=== PATIENT | male | born 1940 | race Caucasian/White ===

== ENCOUNTER 2022-05-20 18:28 | Inpatient (IN) ==
[2022-05-20] MEDS ORDERED: OPTIRAY 320 100ml IV ONE (18:56)
[2022-05-20] MEDS ORDERED: SODIUM CHLORIDE 0.9% 500 ML IV SCH (19:00)
--- NOTE | 2022-05-20 19:02 | Emergency Department Note ---
Impression & Plan Near syncope, Weakness, TAMARA (acute kidney injury), Pleural effusion ED Provider Note NAME: SHERIN MCFARLAND AGE: 81 SEX: M : 1940 ARRIVES VIA: Ambulance INFORMANT: Patient, ED PROVIDER(S): Javier Cardoso DO CHIEF COMPLAINT: Near syncope HPI: The patient is an 81-year-old male who presented to the emergency department for an evaluation of dizziness. The patient states he started having symptoms a few weeks ago. He started noticing that every time he went to stand up he would feel as though he was going to pass out and he would become very dizzy. He denies having any black or bloody bowel moods. He denies having any nausea or vomiting. He denies having any abdominal pain. He states over the course of the 2 weeks he has had episodes where he did fall 1 time where he struck his head. He had an episode prior to arrival where he went to stand up and became very dizzy and lightheaded. His significant other called 911 so we can come to the emergency department. The patient at this time states he feels somewhat improved. He has not been seen by his family doctor recently. He states that he does take blood thinners and has been compliant with all of his outpatient medications. ROS: See above HPI for pertinent positives & negatives. A total of 10 systems reviewed and were otherwise negative. PAST MEDICAL HISTORY: See Below PAST SURGICAL HISTORY: See Below FAMILY HISTORY: See Below SOCIAL HISTORY: See Below HOME MEDICATIONS: See Below ALLERGIES: See Below VITALS: See Below PHYSICAL EXAMINATION: GENERAL: The patient is awake and alert. He is nonanxious appearing. He appears to be comfortable. EYES: The conjunctivae are pale. The pupils are round and reactive. EARS, NOSE, MOUTH AND THROAT: The nose is without any evidence of any deformity. NECK: The neck is nontender and supple. RESPIRATORY: Normal respiratory effort is noted there is no evidence of wheezing rhonchi or rales CARDIOVASCULAR: Regular rate and rhythm noted there no murmurs rubs or gallops normal S1 normal S2. GASTROINTESTINAL: The abdomen is soft. Abdomen is nontender. Rectal exam revealed brown stool which was heme-negative. MUSCULOSKELETAL/EXTREMITIES: There is no evidence of gross deformity full range of motion is noted in the hips and shoulders. SKIN: The skin is warm and dry. Trace pedal edema was noted bilaterally. There is no calf tenderness elicited. NEUROLOGIC: Patient is awake alert and oriented x3. Strength was symmetric. There was no facial droop. Speech was clear. MEDICAL DECISION MAKING: The patient is an 81-year-old male who presented to the emergency department for evaluation of near syncope. According to the patient as well as his family members he has had 2 weeks of episodes where he goes to stand and feels very weak and feels as though he may pass out. He does have some dizziness but does not appear to have vertigo or any focal neurologic deficits. The patient was pale but his hemoglobin is stable compared to previous. The patient had a slight elevation in his creatinine. He was treated with IV fluids in the emergency department. He was able to ambulate but does have some dyspnea on exertion. I discussed the patient's laboratory and radiographic studies with him. Given the degree of symptoms I did discuss his case with the on-call [facility] hospitalist. They have agreed to evaluate the patient in the emergency department for further management and disposition. Triage Nursing notes reviewed. Prior medical records reviewed Vital Signs: reviewed and remarkable for no significant abnormalities Differential diagnosis: Benign positional vertigo, dehydration, hypovolemia, anemia, tumor, infection, hypoglycemia, electrolyte abnormalities, cardiac sources, intracerebral event, toxicologic, neurologic, as well as other pathologies. ER treatment provided: See below Diagnostics interpreted by me: ECG: EKG was obtained in the emergency department. My interpretation is normal sinus rhythm at 62 bpm. There is no ectopy. There was no acute ST segment abnormalities noted. This was compared to a tracing from September 07, 2018. No changes were noted. Cardiac Monitoring: An order was placed for continuous cardiac monitoring. The monitor shows a rate of 67 bpm with sinus rhythm. Laboratory studies: As stated above and show below. Imaging studies: See below Consultation(s): I discussed this case with Dr. Sidhu. He will evaluate the patient in the emergency department for further management and disposition. Past Med/Surg History Medical History Esophageal cancer Surgical History History of esophageal surgery Social History Smoking Status: Former smoker Preferred Language: Thai marital status: Current Living Situation: Spouse Feels Safe at Home: Yes Allergies Allergies Allergy/AdvReac Type Severity Reaction Status Date / Time dextrose Allergy Intermediate Rash Verified 05/20/22 19:42 ibuprofen Allergy Intermediate Rash Verified 05/20/22 19:42 levofloxacin Allergy Intermediate Rash Verified 05/20/22 19:42 prednisone Allergy Intermediate Rash Verified 05/20/22 19:42 rofecoxib Allergy Intermediate Rash Verified 05/20/22 19:42 Home Meds Home Medications Medication Instructions Recorded Confirmed amitriptyline 50 mg tablet 50 mg PO HS 09/07/18 05/20/22 buspirone 5 mg tablet See Rx Instructions .ROUTE .COMPLEX 09/07/18 05/20/22 ezetimibe 10 mg tablet 5 mg PO DAILY 09/07/18 05/20/22 fluvastatin 80 mg tablet,extended 80 mg PO DAILY 09/07/18 05/20/22 release 24 hr lorazepam 0.5 mg tablet 0.5 mg PO TID PRN 09/07/18 05/20/22 pantoprazole 40 mg tablet,delayed 40 mg PO DAILY 09/07/18 05/20/22 release apixaban 5 mg tablet (Eliquis) 5 mg PO BID 05/20/22 05/20/22 diclofenac sodium 1 % topical gel 4 g TOPICAL DAILY PRN 05/20/22 05/20/22 gabapentin 300 mg capsule 600 mg PO TID 05/20/22 05/20/22 propranolol 20 mg tablet 20 mg PO BID 05/20/22 05/20/22 Results & Data (ED) Vital Signs Vital Signs - 24 hr 05/20/22 18:21 05/20/22 19:38 05/20/22 21:13 Temperature 36.5 C Temperature Source Temporal Artery Scan Pulse Rate - Lying 68 Pulse Rate - Sitting 76 Pulse Rate - Standing 71 Pulse Rate 63 Pulse Rate [Finger] 67 Pulse Rhythm Regular Pulse Strength Normal Respiratory Rate 18 18 Respiratory Effort / Characteristics Non-Labored Respiratory Depth Normal Blood Pressure - Lying 133/72 Blood Pressure - Sitting 122/71 Blood Pressure- Standing 119/63 Blood Pressure 116/66 Blood Pressure [Right Arm] 121/72 Blood Pressure Mean 82 Blood Pressure Mean [Right Arm] 88 Pulse Oximetry 97 Oxygen Delivery Method Room Air Sepsis Recent Fever Within 48 Hours No Sepsis New/Unexplained Change in Mental Status N/A Sepsis Action Taken by Nursing No Action Required 05/20/22 21:15 Temperature Temperature Source Pulse Rate - Lying Pulse Rate - Sitting Pulse Rate - Standing Pulse Rate Pulse Rate [Finger] Pulse Rhythm Pulse Strength Respiratory Rate Respiratory Effort / Characteristics Respiratory Depth Blood Pressure - Lying Blood Pressure - Sitting Blood Pressure- Standing Blood Pressure Blood Pressure [Right Arm] Blood Pressure Mean Blood Pressure Mean [Right Arm] Pulse Oximetry 97 Oxygen Delivery Method Room Air Sepsis Recent Fever Within 48 Hours Sepsis New/Unexplained Change in Mental Status Sepsis Action Taken by Snf Medications Current Medication List: was personally reviewed by me Laboratory Data Attestation: I reviewed the patient's lab results. Result diagrams: 05/20/22 18:33 05/20/22 20:05 Lab Results 05/20/22 05/20/22 05/20/22 Range/Units 18:33 18:33 18:33 WBC 9.48 (4.8-10.8) K/uL RBC 4.36 L (4.7-6.1) M/uL Hgb 12.6 L (14.0-18.0) g/dL Hct 38.9 L (42-52) % MCV 89.2 (80-100) fL MCH 28.9 (25-34) pg MCHC 32.4 (32-36) g/dL RDW Std Deviation 55.0 H (36.4-46.3) fL RDW Coeff of Gonsalo 16.7 H (11.5-14.5) % Plt Count 249 (130-400) K/uL MPV 10.9 H (7.4-10.4) fL Immature Gran % (Auto) 0.1 % Neut % (Auto) 71.1 % Lymph % (Auto) 8.2 % [place] % (Auto) 19.2 % Eos % (Auto) 1.2 % Baso % (Auto) 0.2 % Neut # (Auto) 6.74 H (1.4-6.5) K/uL Lymph # (Auto) 0.78 L (1.2-3.4) K/uL [place] # (Auto) 1.82 H (0.11-0.59) K/uL Eos # (Auto) 0.11 (0-0.5) K/uL Baso # (Auto) 0.02 (0-0.2) K/uL Immature Gran # (Auto) 0.01 (0.00-0.02) K/uL PT 11.7 (9.0-12.0) Seconds INR 1.1 (0.9-1.1) APTT 31.0 (21.0-31.0) Seconds PTT Ratio 1.1 Sodium (136-145) mmol/L Potassium (3.5-5.1) mmol/L Chloride (98-107) mmol/L Carbon Dioxide (21-32) mmol/L Anion Gap (3-11) BUN (6-23) mg/dl Creatinine (0.6-1.4) mg/dl Est Cr Clr Drug Dosing ml/min Est GFR ( Amer) ml/min Est GFR (Non-Af Amer) ml/min BUN/Creatinine Ratio (10-20) Glucose (70-99(Fasting)) mg/dl Calcium (8.5-10.1) mg/dl Magnesium (1.7-2.4) mg/dl Total Bilirubin (0.2-1.0) mg/dl AST (13-39) U/L ALT (7-52) U/L Alkaline Phosphatase (34-104) U/L Troponin I High Sens (0-20) pg/ml Total Protein (6.0-8.3) gm/dl Albumin (3.4-5.0) gm/dl Globulin (2.5-4.0) gm/dl Albumin/Globulin Ratio (0.9-2) TSH 0.998 (0.300-4.500) uIu/ml 05/20/22 Range/Units 20:05 WBC (4.8-10.8) K/uL RBC (4.7-6.1) M/uL Hgb (14.0-18.0) g/dL Hct (42-52) % MCV (80-100) fL MCH (25-34) pg MCHC (32-36) g/dL RDW Std Deviation (36.4-46.3) fL RDW Coeff of Gonsalo (11.5-14.5) % Plt Count (130-400) K/uL MPV (7.4-10.4) fL Immature Gran % (Auto) % Neut % (Auto) % Lymph % (Auto) % [place] % (Auto) % Eos % (Auto) % Baso % (Auto) % Neut # (Auto) (1.4-6.5) K/uL Lymph # (Auto) (1.2-3.4) K/uL [place] # (Auto) (0.11-0.59) K/uL Eos # (Auto) (0-0.5) K/uL Baso # (Auto) (0-0.2) K/uL Immature Gran # (Auto) (0.00-0.02) K/uL PT (9.0-12.0) Seconds INR (0.9-1.1) APTT (21.0-31.0) Seconds PTT Ratio Sodium 138 (136-145) mmol/L Potassium 3.7 (3.5-5.1) mmol/L Chloride 103 (98-107) mmol/L Carbon Dioxide 29 (21-32) mmol/L Anion Gap 6 (3-11) BUN 14 (6-23) mg/dl Creatinine 1.53 H (0.6-1.4) mg/dl Est Cr Clr Drug Dosing 39.6 ml/min Est GFR ( Amer) 48.4 ml/min Est GFR (Non-Af Amer) 41.7 ml/min BUN/Creatinine Ratio 9.2 L (10-20) Glucose 94 (70-99(Fasting)) mg/dl Calcium 8.1 L (8.5-10.1) mg/dl Magnesium 1.8 (1.7-2.4) mg/dl Total Bilirubin 0.6 (0.2-1.0) mg/dl AST 11 L (13-39) U/L ALT 5 L (7-52) U/L Alkaline Phosphatase 77 (34-104) U/L Troponin I High Sens 6.5 (0-20) pg/ml Total Protein 6.4 (6.0-8.3) gm/dl Albumin 3.1 L (3.4-5.0) gm/dl Globulin 3.3 (2.5-4.0) gm/dl Albumin/Globulin Ratio 0.9 (0.9-2) TSH (0.300-4.500) uIu/ml Administered Medications Discontinued Medications Sodium Chloride (Nss) 500 mls @ 999 mls/hr IV .Q31M LORENZO Stop: 05/20/22 19:30 Last Infusion: 05/20/22 19:27 Dose: 0 mls/hr Documented by: [id number] Admin: 05/20/22 18:55 Dose: 999 mls/hr Documented by: [id number] Ioversol (Optiray 320 100ml) 92 ml IV ONCE ONE Stop: 05/20/22 18:57 Last Admin: 05/20/22 18:56 Dose: 92 ml Documented by: [id number] Imaging Data Radiologist's Impression: Cervical Spine CT 05/20/22 18:48 CT cervical spine wo con CLINICAL HISTORY: 81 years-old Male with fall. Acute head and neck injury status post fall COMPARISON: CT head of same day TECHNIQUE: Multiple axial CT images of the cervical spine were obtained without contrast. A dose lowering technique was utilized adhering to the principles of ALARA. FINDINGS: Calcified plaque of the carotid bulbs. Heterogeneity of the thyroid. Pleural parenchymal scarring of the lung apices. Mild nonspecific wall thickening of the upper esophagus. No prevertebral edema. Multilevel degenerative changes. Multilevel neural foraminal narrowing, suboptimally evaluated by CT. No acute fracture or subluxation. IMPRESSION: No acute fracture or subluxation. ACT 112: Negative or not required by law. The above report was generated using voice recognition software. It may contain grammatical, syntax or spelling errors. Electronically signed by: Javon Ha M.D. 05/20/2022 7:50 PM Chest X-Ray 05/20/22 18:48 XR chest 1V portable HISTORY: 81 years-old Male weakness acute weakness COMPARISON: CTA chest 09/07/2018 TECHNIQUE: Portable AP view of the chest FINDINGS: The cardiomediastinal and hilar silhouettes are unchanged. Right paramediastinal opacity is unchanged corresponding with the patient's tortuous esophagus. No pneumothorax or overt pulmonary edema. Trace right and small left pleural effusions with minimal left basilar opacities. Bones of the chest appear grossly intact. IMPRESSION: Small left and trace right pleural effusions. ACT 112: Negative or not required by law. The above report was generated using voice recognition software. It may contain grammatical, syntax or spelling errors. Electronically signed by: Javon Ha M.D. 05/20/2022 7:[address] 05/20/22 18:48 CT head/brain wo con CLINICAL HISTORY: 81 years-old Male with fall. Acute head and neck trauma status post fall TECHNIQUE: Multiple axial CT images of the head were obtained without contrast. A dose lowering technique was utilized adhering to the principles of ALARA. CT DOSE: 1069.08 mGy.cm COMPARISON: CT cervical spine of same day FINDINGS: No acute intracranial hemorrhage, midline shift, intracranial mass, hydrocephalus, territorial ischemia or abnormal extra-axial collection. Age- related involutional changes with ex vacuo ventriculomegaly. White matter hypodensities suggest chronic microvascular ischemic disease. Cerebral vascular calcifications. The calvarium is intact. Prior bilateral lens replacement. The paranasal sinuses, mastoid air cells, and middle ear cavities are clear. IMPRESSION: No acute intracranial abnormality or calvarial fracture. ACT 112: Negative or not required by law. The above report was generated using voice recognition software. It may contain grammatical, syntax or spelling errors. Electronically signed by: Javon Ha M.D. 05/20/2022 7:43 PM Discharge Plan Visit Data Chief Complaint: Dizziness ED Provider: Javier Cardoso Discharge Problem: Near syncope, Weakness, TAMARA (acute kidney injury), Pleural effusion Patient Disposition: Being Evaluated by Hospitalist Forms Stand Alone Forms: My [facility] [employer] Prescriptions Prescriptions: No Action buspirone 5 mg tablet See Rx Instructions .ROUTE .COMPLEX RF: 0 amitriptyline 50 mg tablet 50 mg PO HS RF: 0 lorazepam 0.5 mg tablet 0.5 mg PO TID PRN (Reason: Anxiety) RF: 0 pantoprazole 40 mg tablet,delayed release (DR/EC) 40 mg PO DAILY RF: 0 fluvastatin 80 mg tablet extended release 24 hr 80 mg PO DAILY RF: 0 ezetimibe 10 mg tablet 5 mg PO DAILY RF: 0 gabapentin 300 mg capsule 600 mg PO TID RF: 0 propranolol 20 mg tablet 20 mg PO BID RF: 0 diclofenac sodium [Voltaren] 1 % Gel 4 g TOPICAL DAILY PRN (Reason: Pain) RF: 0 Eliquis 5 mg tablet 5 mg PO BID RF: 0 Referrals Referrals: Priti Sabillon MD [Outside Practitioners] -
[2022-05-20 19:13] LABS: Basophils # (auto) 0.02 K/uL (0-0.2); Basophils % (auto) 0.2 %; Eosinophils # (auto) 0.11 K/uL (0-0.5); Eosinophils % (auto) 1.2 %; Hematocrit (blood only) 38.9 % (42-52); Hemoglobin 12.6 g/dL (14.0-18.0); Immature Granulocytes # (auto) 0.01 K/uL (0.00-0.02); Immature Granulocytes % (auto) 0.1 %; Lymphocytes # (auto) 0.78 K/uL (1.2-3.4); Lymphocytes % (auto) 8.2 %; Mean Corpuscular Hemoglobin 28.9 pg (25-34); Mean Corpuscular Hgb Conc 32.4 g/dL (32-36); Mean Corpuscular Volume 89.2 fL (80-100); Mean Platelet Volume 10.9 fL (7.4-10.4); Monocytes # (auto) 1.82 K/uL (0.11-0.59); Monocytes % (auto) 19.2 %; Neutrophils # (auto) 6.74 K/uL (1.4-6.5); Neutrophils % (auto) 71.1 %; Platelet Count 249 K/uL (130-400); RDW Coefficient of Variation 16.7 % (11.5-14.5); Red Blood Count 4.36 M/uL (4.7-6.1); White Blood Count 9.48 K/uL (4.8-10.8)
--- NOTE | 2022-05-20 19:20 | XRay Report ---
XR chest 1V portable HISTORY: 81 years-old Male weakness acute weakness COMPARISON: CTA chest 09/07/2018 TECHNIQUE: Portable AP view of the chest FINDINGS: The cardiomediastinal and hilar silhouettes are unchanged. Right paramediastinal opacity is unchanged corresponding with the patient's tortuous esophagus. No pneumothorax or overt pulmonary edema. Trace right and small left pleural effusions with minimal left basilar opacities. Bones of the chest appea r grossly intact. IMPRESSION: Small left and trace right pleural effusions. ACT 112: Negative or not required by law. The above report was generated using voice recognition software. It may contain grammatical, syntax o r spelling errors. Electronically signed by: Javon Ha M.D. 05/20/2022 7:18 PM
[2022-05-20 19:34] LABS: INR 1.1 (0.9-1.1); Partial Thromboplastin Ratio 1.1; Prothrombin Time 11.7 Seconds (9.0-12.0)
--- NOTE | 2022-05-20 19:45 | CT Scan Report ---
CT head/brain wo con CLINICAL HISTORY: 81 years-old Male with fall. Acute head and neck trauma status post fall TECHNIQUE: Multiple axial CT images of the head were obtained without contrast. A dose lowering tech nique was utilized adhering to the principles of ALARA. CT DOSE: 1069.08 mGy.cm COMPARISON: CT cervical spine of same day FINDINGS: No acute intracranial hemorrhage, midline shift, intracranial mass, hydrocephalus, territorial ischem ia or abnormal extra-axial collection. Age-related involutional changes with ex vacuo ventriculomegal y. White matter hypodensities suggest chronic microvascular ischemic disease. Cerebral vascular calci fications. The calvarium is intact. Prior bilateral lens replacement. The paranasal sinuses, mastoid air cells, and middle ear cavities are clear. IMPRESSION: No acute intracranial abnormality or calvarial fracture. ACT 112: Negative or not required by law. The above report was generated using voice recognition software. It may contain grammatical, syntax o r spelling errors. Electronically signed by: Javon Ha M.D. 05/20/2022 7:43 PM
--- NOTE | 2022-05-20 19:53 | CT Scan Report ---
CT cervical spine wo con CLINICAL HISTORY: 81 years-old Male with fall. Acute head and neck injury status post fall COMPARISON: CT head of same day TECHNIQUE: Multiple axial CT images of the cervical spine were obtained without contrast. A dose low ering technique was utilized adhering to the principles of ALARA. FINDINGS: Calcified plaque of the carotid bulbs. Heterogeneity of the thyroid. Pleural parenchymal scarring of the lung apices. Mild nonspecific wall thickening of the upper esophagus. No prevertebral edema. Multilevel degenerative changes. Multilevel neural foraminal narrowing, suboptimally evaluated by CT. No acute fracture or subluxation. IMPRESSION: No acute fracture or subluxation. ACT 112: Negative or not required by law. The above report was generated using voice recognition software. It may contain grammatical, syntax o r spelling errors. Electronically signed by: Javon Ha M.D. 05/20/2022 7:50 PM
[2022-05-20 20:33] LABS: Albumin Globulin Ratio 0.9 (0.9-2); Albumin Level 3.1 gm/dl (3.4-5.0); BUN Creatinine Ratio 9.2 (10-20); Bilirubin,Total 0.6 mg/dl (0.2-1.0); Calcium 8.1 mg/dl (8.5-10.1); Creatinine Clr Calc Pharmacy 39.6 ml/min; Est GFR (African American) 48.4 ml/min; Est GFR (Non-African American) 41.7 ml/min; Globulin 3.3 gm/dl (2.5-4.0); Magnesium 1.8 mg/dl (1.7-2.4); Potassium 3.7 mmol/L (3.5-5.1); Total Protein 6.4 gm/dl (6.0-8.3)
[2022-05-20 20:39] LABS: Troponin I High Sensitivity 6.5 pg/ml (0-20)
--- NOTE | 2022-05-20 23:13 | History & Physical Report ---
Date of Service May 20, 2022 Assessment & Plan (1) Syncope: Plan: Likely secondary to orthostasis History of orthostatic hypotension as per records Patient possibly taking both propranolol and metoprolol cardiac medications as per account. (Possible functional disability) PAF on Eliquis, patient NSR hx esophageal carcinoma status post surgery CRI, creatinine at baseline chronic anemia, hemoglobin at baseline past tobacco/alcohol abuse OBS Medical telemetry Continue metoprolol, DC propranolol TTE RE syncope Cardiology consult Re: Orthostasis, syncope May need midodrine if with persistent hypotension PT OT eval DVT prophylaxis. Eliquis Full code Patient family requesting updates from providers. Ms. Magaly Epps (), contact #[phone] Mr. Myles Escobedo ([email or web address]), contact #[phone] Text document was generated using [employer] voice recognition software. It may contain grammatical or spelling errors. Kindly contact undersigned for clarification of any documentation item in question. History of Present Illness Chief Complaint: Lightheadedness, recurrent falls, syncope as per family Primary Care Provider: Dianna Maria, History obtained from patient, family, and records. Medical history significant for PAF on Eliquis, esophageal carcinoma status post surgery, orthostatic hypotension as per records, CRI (baseline creatinine 1.5 ), chronic anemia (baseline hemoglobin of 12 ), past tobacco/alcohol abuse. 1 month history of dizziness described as lightheadedness noted on standing up. Almost daily symptoms as per family. Syncopal events as per family which patient not sure about. No witnessed seizures. No tongue biting or incontinence episodes. Patient denies headache, chest pain, shortness of breath. Metoprolol discontinued by [facility] polypharmacy consult on last visit August 2021. Patient thinks he is taking both propranolol and metoprolol medications at home. Head trauma following syncopal episode at home today leading to fall. Initial SBP 90s upon EMS arrival at home. Medical History as above Surgical History : Cystoscopy, right shoulder surgery, knee replacement, laminectomy, double hernia repair, vascular device placement, diagnostic laparoscopy, total esophagectomy, J-tube placement Family History : DM Personal/Social history : Past tobacco/alcohol abuse as per records, retired from construction work, lives with Allergies Allergy/AdvReac Type Severity Reaction Status Date / Time dextrose Allergy Intermediate Rash Verified 05/20/22 19:42 ibuprofen Allergy Intermediate Rash Verified 05/20/22 19:42 levofloxacin Allergy Intermediate Rash Verified 05/20/22 19:42 prednisone Allergy Intermediate Rash Verified 05/20/22 19:42 rofecoxib Allergy Intermediate Rash Verified 05/20/22 19:42 Home Medications Medication Instructions Recorded Confirmed Type amitriptyline 50 mg tablet 50 mg PO HS 09/07/18 05/20/22 History buspirone 5 mg tablet See Rx Instructions .ROUTE .COMPLEX 09/07/18 05/20/22 History ezetimibe 10 mg tablet 5 mg PO DAILY 09/07/18 05/20/22 History fluvastatin 80 mg tablet,extended 80 mg PO DAILY 09/07/18 05/20/22 History release 24 hr lorazepam 0.5 mg tablet 0.5 mg PO TID PRN 09/07/18 05/20/22 History pantoprazole 40 mg tablet,delayed 40 mg PO DAILY 09/07/18 05/20/22 History release apixaban 5 mg tablet (Eliquis) 5 mg PO BID 05/20/22 05/20/22 History diclofenac sodium 1 % topical gel 4 g TOPICAL DAILY PRN 05/20/22 05/20/22 History gabapentin 300 mg capsule 600 mg PO TID 05/20/22 05/20/22 History propranolol 20 mg tablet 20 mg PO BID 05/20/22 05/20/22 History Past Med/Surg History Medical History Esophageal cancer Surgical History History of esophageal surgery Social History Smoking Status: Unknown if ever smoked Hx Alcohol Use: No Hx Substance Use: No Preferred Language: Estonian Communication Ability: Effective Mobile Home Installer Required: No Beliefs That Will Affect Care: None marital status: Current Living Situation: Alone Other Information That Helps Us Care for You: No Feels Safe at Home: Yes Safety Concerns: Feels Safe At This Time Assistive Devices: Denture - Upper and Glasses Review of Systems Review of Systems: As per HPI, all other systems reviewed and negative Physical Exam Physical Exam: GENERAL: Comfortable, pleasant, slightly anxious, slightly hard of hearing, no respiratory distress SKIN: Normal color, warm HEENT: [place] palpebral conjunctivae, no ptosis, dry buccal mucosa NECK : Supple, no tenderness CHEST : CTA, no tenderness HEART : RRR, no obvious murmurs ABDOMEN: no distention, nontender EXTREMITIES : No LE swelling/tenderness, no other conspicuous deformities noted NEUROLOGIC : Coherent, no facial asymmetry, slightly hard of hearing, gait and stance not assessed Results & Data Results & Data ([facility]) Vital Signs (Past 12 Hours) Vital Signs Temp Pulse Pulse Resp BP BP Pulse Ox 05/20/22 21:15 97 05/20/22 21:13 67 18 121/72 05/20/22 18:21 36.5 C 63 18 116/66 97 Laboratory Results Laboratory Results WBC 9.48 K/uL (4.8-10.8) 05/20/22 18:33 RBC 4.36 M/uL (4.7-6.1) L 05/20/22 18:33 Hgb 12.6 g/dL (14.0-18.0) L 05/20/22 18:33 Hct 38.9 % (42-52) L 05/20/22 18:33 MCV 89.2 fL (80-100) 05/20/22 18:33 MCH 28.9 pg (25-34) 05/20/22 18:33 MCHC 32.4 g/dL (32-36) 05/20/22 18:33 RDW Std Deviation 55.0 fL (36.4-46.3) H 05/20/22 18:33 RDW Coeff of [place] 16.7 % (11.5-14.5) H 05/20/22 18:33 Plt Count 249 K/uL (130-400) 05/20/22 18:33 MPV 10.9 fL (7.4-10.4) H 05/20/22 18:33 Immature Gran % (Auto) 0.1 % 05/20/22 18:33 Neut % (Auto) 71.1 % 05/20/22 18:33 Lymph % (Auto) 8.2 % 05/20/22 18:33 [place] % (Auto) 19.2 % 05/20/22 18:33 Eos % (Auto) 1.2 % 05/20/22 18:33 Baso % (Auto) 0.2 % 05/20/22 18:33 Neut # (Auto) 6.74 K/uL (1.4-6.5) H 05/20/22 18: Lymph # (Auto) 0.78 K/uL (1.2-3.4) L 05/20/22 18:33 [place] # (Auto) 1.82 K/uL (0.11-0.59) H 05/20/22 18: Eos # (Auto) 0.11 K/uL (0-0.5) 05/20/22 18: Baso # (Auto) 0.02 K/uL (0-0.2) 05/20/22 18: Immature Gran # (Auto) 0.01 K/uL (0.00-0.02) 05/20/22 18: PT 11.7 Seconds (9.0-12.0) 05/20/22 18: INR 1.1 (0.9-1.1) 05/20/22: APTT 31.0 Seconds (21.0-31.0) 05/20/22: PTT Ratio 1.1 05/20/22 18:33 Sodium 138 mmol/L (136-145) 05/20/22 20:05 Potassium 3.7 mmol/L (3.5-5.1) 05/20/22 20:05 Chloride 103 mmol/L (98-107) 05/20/22 20:05 Carbon Dioxide 29 mmol/L (21-32) 05/20/22 20:05 Anion Gap 6 (3-11) 05/20/22 20:05 BUN 14 mg/dl (6-23) 05/20/22 20:05 Creatinine 1.53 mg/dl (0.6-1.4) H 05/20/22 20:05 Est Cr Clr Drug Dosing 39.6 ml/min 05/20/22 20:05 Est GFR ( Amer) 48.4 ml/min 05/20/22 20:05 Est GFR (Non-Af Amer) 41.7 ml/min 05/20/22 20:05 BUN/Creatinine Ratio 9.2 (10-20) L 05/20/22 20:05 Glucose 94 mg/dl (70-99(Fasting)) 05/20/22 20:05 Calcium 8.1 mg/dl (8.5-10.1) L 05/20/22 20:05 Magnesium 1.8 mg/dl (1.7-2.4) 05/20/22 20:05 Total Bilirubin 0.6 mg/dl (0.2-1.0) 05/20/22 20:05 AST 11 U/L (13-39) L 05/20/22 20:05 ALT 5 U/L (7-52) L 05/20/22 20:05 Alkaline Phosphatase 77 U/L (34-104) 05/20/22 20:05 Troponin I High Sens 6.5 pg/ml (0-20) 05/20/22 20:05 Total Protein 6.4 gm/dl (6.0-8.3) 05/20/22 20:05 Albumin 3.1 gm/dl (3.4-5.0) L 05/20/22 20:05 Globulin 3.3 gm/dl (2.5-4.0) 05/20/22 20:05 Albumin/Globulin Ratio 0.9 (0.9-2) 05/20/22 20:05 TSH 0.998 uIu/ml (0.300-4.500) 05/20/22 18:33 SARS-CoV-2, RNA, NAAT NEGATIVE (NEGATIVE) 05/20/22 22:[address] 05/20/22 18:48 CT cervical spine wo con CLINICAL HISTORY: 81 years-old Male with fall. Acute head and neck injury status post fall COMPARISON: CT head of same day TECHNIQUE: Multiple axial CT images of the cervical spine were obtained without contrast. A dose lowering technique was utilized adhering to the principles of ALARA. FINDINGS: Calcified plaque of the carotid bulbs. Heterogeneity of the thyroid. Pleural parenchymal scarring of the lung apices. Mild nonspecific wall thickening of the upper esophagus. No prevertebral edema. Multilevel degenerative changes. Multilevel neural foraminal narrowing, suboptimally evaluated by CT. No acute fracture or subluxation. IMPRESSION: No acute fracture or subluxation. ACT 112: Negative or not required by law. The above report was generated using voice recognition software. It may contain grammatical, syntax or spelling errors. Electronically signed by: Javon Ha M.D. 05/20/2022 7:50 PM Chest X-Ray 05/20/22 18:48 XR chest 1V portable HISTORY: 81 years-old Male weakness acute weakness COMPARISON: CTA chest 09/07/2018 TECHNIQUE: Portable AP view of the chest FINDINGS: The cardiomediastinal and hilar silhouettes are unchanged. Right paramediastinal opacity is unchanged corresponding with the patient's tortuous esophagus. No pneumothorax or overt pulmonary edema. Trace right and small left pleural effusions with minimal left basilar opacities. Bones of the chest appear grossly intact. IMPRESSION: Small left and trace right pleural effusions. ACT 112: Negative or not required by law. The above report was generated using voice recognition software. It may contain grammatical, syntax or spelling errors. Electronically signed by: Javon Ha M.D. 05/20/2022 7:[address] 05/20/22 18:48 CT head/brain wo con CLINICAL HISTORY: 81 years-old Male with fall. Acute head and neck trauma status post fall TECHNIQUE: Multiple axial CT images of the head were obtained without contrast. A dose lowering technique was utilized adhering to the principles of ALARA. CT DOSE: 1069.08 mGy.cm COMPARISON: CT cervical spine of same day FINDINGS: No acute intracranial hemorrhage, midline shift, intracranial mass, hydrocephalus, territorial ischemia or abnormal extra-axial collection. Age- related involutional changes with ex vacuo ventriculomegaly. White matter hypodensities suggest chronic microvascular ischemic disease. Cerebral vascular calcifications. The calvarium is intact. Prior bilateral lens replacement. The paranasal sinuses, mastoid air cells, and middle ear cavities are clear. IMPRESSION: No acute intracranial abnormality or calvarial fracture. ACT 112: Negative or not required by law. The above report was generated using voice recognition software. It may contain grammatical, syntax or spelling errors. Electronically signed by: Javon Ha M.D. 05/20/2022 7:43 PM Diagnostic Findings EKG as per my interpretation : Rate 60, NSR, normal axis, T wave abnormalities septal leads
[2022-05-21] MEDS ORDERED: DICLOFENAC SOD 1% GEL 100 GM TUBE EXT PRN (00:43)
[2022-05-21] MEDS ORDERED: ACETAMINOPHEN 325 MG TAB PO PRN (00:43)
[2022-05-21] MEDS ORDERED: PROMETHAZINE HCL 12.5 MG in SODIUM CHLORIDE 0.9% 50 ML IV PRN (00:43)
[2022-05-21 01:16] LABS: Appearance Urine Clear (Clear); Bilirubin Urine Negative (Negative); Blood Urine Negative (Negative); Color Urine Yellow; Glucose Urine UA Negative (Negative); Ketones Urine Negative (Negative); Leukocyte Esterase Urine Negative (Negative); Nitrite Urine Negative (Negative); Protein Urine Negative (Negative); Specific Gravity Urine 1.007 (1.000-1.030); Urobilinogen Urine Negative (Negative); pH Urine 6.5 (4.5-7.5)
[2022-05-21] MEDS: APIXABAN 5 MG TABLET PO SCH ×2 (02:21→08:37)
[2022-05-21] MEDS: busPIRone 5 MG TAB PO SCH ×3 (02:22→22:24)
[2022-05-21 06:59] LABS: Basophils # (auto) 0.03 K/uL (0-0.2); Basophils % (auto) 0.5 %; Eosinophils # (auto) 0.12 K/uL (0-0.5); Eosinophils % (auto) 1.9 %; Hematocrit (blood only) 35.4 % (42-52); Hemoglobin 11.5 g/dL (14.0-18.0); Immature Granulocytes # (auto) 0.01 K/uL (0.00-0.02); Immature Granulocytes % (auto) 0.2 %; Lymphocytes # (auto) 1.22 K/uL (1.2-3.4); Lymphocytes % (auto) 19.5 %; Mean Corpuscular Hemoglobin 28.4 pg (25-34); Mean Corpuscular Hgb Conc 32.5 g/dL (32-36); Mean Corpuscular Volume 87.4 fL (80-100); Mean Platelet Volume 10.2 fL (7.4-10.4); Monocytes # (auto) 1.29 K/uL (0.11-0.59); Monocytes % (auto) 20.6 %; Neutrophils % (auto) 57.3 %; Platelet Count 207 K/uL (130-400); RDW Coefficient of Variation 16.9 % (11.5-14.5); RDW Standard Deviation 54.2 fL (36.4-46.3); Red Blood Count 4.05 M/uL (4.7-6.1); White Blood Count 6.27 K/uL (4.8-10.8)
[2022-05-21 07:21] LABS: BUN Creatinine Ratio 9.2 (10-20); Calcium 8.2 mg/dl (8.5-10.1); Creatinine Clr Calc Pharmacy 42.7 ml/min; Est GFR (African American) 52.9 ml/min; Est GFR (Non-African American) 45.7 ml/min; Potassium 3.4 mmol/L (3.5-5.1)
--- NOTE | 2022-05-21 07:25 | Cardiology Consultation ---
Date of Consultation May 21, 2022 Assessment & Plan (1) Orthostatic hypotension: (2) Weakness: (3) Near syncope: Episodes of dizziness/weakness with presyncope with quick position changes. Was taking both propranolol and metoprolol at home. Does have a prior history of orthostatic hypotension. Telemetry did not show any significant bradycardia or pauses. - Agree with discontinuing nonspecific beta amadeo, propranolol with continuation of metoprolol. Metoprolol should not affect the patient's BP significantly. - Symptoms seem to have an orthostatic cause. Recommend obtaining orthostatic vital signs. - Recommending increased hydration. Okay to allow for a slightly higher BP to a void orthostasis. - Replace electrolytes as needed, potassium goal of 4.0 and mag goal of 2.0 - Agree with PT/OT evaluation. - Further recommendations pending Echo results. (4) Paroxysmal atrial fibrillation: [id number] score of 3 (age 1, HTN). SR on telemetry during admission -Patietn on reduced dose Eliquis as an outpatient due to age and renal function, reduce Eliquis to 2.5 mg BID -Continue metoprolol succinate 12.5 mg daily. Monitor for bradyarrhythmias. Case discussed with Dr. Zavala. Supervising Physician Co-Signing Physician Notes Supervising Physician Attestation: I have personally performed a history and physical examination on the patient. I agree with the nurse practitioners findings and plan as documented with the following additions. Subjective: Feeling well, eating noontime meal Exam: Cardiovascular regular rhythm, no murmurs, no edema Data: Telemetry reveals sinus rhythm in the 60s to 70s. EKG 05/20/2022, normal sinus rhythm 62 bpm, normal EKG Assessment and Plan: Near syncope -Discontinue propranolol Continue metoprolol. Patient unaware of why he was specifically on propranolol, does not appear to have a history of resting tremor or any diagnosis that would favor propranolol as his beta-amadeo of choice. DVT prophylaxis: Continue chronic anticoagulation with Eliquis given history of paroxysmal atrial fibrillation, dose adjusted for risk factors of age over 80 years old, creatinine 1.5, 2.5 mg twice daily Raj Zavala, DO History of Present Illness Reason for Consultation: Syncope Requesting Physician: [facility] Attending Physician: Israel Toribio MD History of Present Illness 81-year-old male known to the [facility] outpatient cardiology clinic. Followed by Dr. Hamlin and the undersigned. Past medical history as noted below. Last seen by the undersigned in July 2021. PAST MEDICAL HISTORY: 1. Paroxysmal atrial fibrillation, on Eliquis (reduced dose) 2. Esophageal adenocarcinoma s/p total esophagectomy. 3. Orthostatic hypotension 4. Remote tobacco use history. 5. Remote alcoholism, quit 1988. 6. CKD, baseline scr 1.4-1.6 7. Enlarged aorta- root 4.4 cm, asc aorta 4.3 cm (per echo 04/2021) 8. Tinnitus Initially presented to the emergency department for daily episodes of presyncope/dizziness with position changes specifically on standing up from a laying or seated position. Ongoing for years per the patient, worse over the last month. Denies any loss of consciousness. Will feel weakness in his lower extremities if walking a long distance, unsteady at times. 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 Lives at home with his , does go up and down stairs in his home. Does his own medications. Previously Followed with our cardio [facility] clinic for polypharmacy-metoprolol was discontinued 08/2021 but patient believed that he was taking both propranolol and metoprolol at home. Systolic blood pressure in the 90s upon arrival to emergency department. Treated with 1L NSS and propranolol dc'd. Lab work notable for mild anemia, potassium of 3.4, serum creatinine of 1.53 and 1.42 (at baseline). High-sensitivity troponin negative. Thyroid normal. Chest x-ray showed small left and trace right pleural effusions. Head CT showed no acute intracranial abnormalities. Tele: SR 60-70s Allergies Allergy/AdvReac Type Severity Reaction Status Date / Time dextrose Allergy Intermediate Rash Verified 05/20/22 19:42 ibuprofen Allergy Intermediate Rash Verified 05/20/22 19:42 levofloxacin Allergy Intermediate Rash Verified 05/20/22 19:42 prednisone Allergy Intermediate Rash Verified 05/20/22 19:42 rofecoxib Allergy Intermediate Rash Verified 05/20/22 19:42 Home Medications Medication Instructions Recorded Confirmed Type amitriptyline 50 mg tablet 50 mg PO HS 09/07/18 05/20/22 History buspirone 5 mg tablet See Rx Instructions .ROUTE .COMPLEX 09/07/18 05/20/22 History ezetimibe 10 mg tablet 5 mg PO DAILY 09/07/18 05/20/22 History fluvastatin 80 mg tablet,extended 80 mg PO DAILY 09/07/18 05/20/22 History release 24 hr lorazepam 0.5 mg tablet 0.5 mg PO TID PRN 09/07/18 05/20/22 History pantoprazole 40 mg tablet,delayed 40 mg PO DAILY 09/07/18 05/20/22 History release apixaban 5 mg tablet (Eliquis) 5 mg PO BID 05/20/22 05/20/22 History diclofenac sodium 1 % topical gel 4 g TOPICAL DAILY PRN 05/20/22 05/20/22 History gabapentin 300 mg capsule 600 mg PO TID 05/20/22 05/20/22 History propranolol 20 mg tablet 20 mg PO BID 05/20/22 05/20/22 History Patient History Medical History Esophageal cancer Surgical History History of esophageal surgery Social History Smoking Status: Unknown if ever smoked Hx Alcohol Use: No Hx Substance Use: No Preferred Language: Citizen Of [place] Communication Ability: Effective Senior Structural Engineer Required: No Beliefs That Will Affect Care: None marital status: Current Living Situation: Alone Other Information That Helps Us Care for You: No Feels Safe at Home: Yes Safety Concerns: Feels Safe At This Time Assistive Devices: Walker Assistive Devices Comment: no devices at baseline, has walker available Review of Systems Review of Systems: All systems reviewed & are unremarkable except as noted in HPI & below Physical Exam Physical Exam: General: No acute distress. A+Ox3. HEENT: Normocephalic. Atraumatic. PERRL. EOMI. Conjunctiva and sclera clear. NECK: No carotid bruits. No JVD. Carotid upstrokes are brisk. Heart: RRR. S1 and S2 noted without murmur, rubs, gallops. PMI non displaced. Lungs: Clear lung sounds bilaterally, no rhonchi wheezing or rales. Abdomen: Normal bowel sounds. Soft. Nontender. No masses or organomegaly. No abdominal bruits. Extremities: No edema. No clubbing or cyanosis. Pulses: radial=2/4, posterior tibial=2/4, dorsalis pedis = 2/4. NEURO: No focal deficits. PSYCH: Normal. Results & Data ([facility]) Vital Signs (Past 12 Hours) Vital Signs Temp Pulse Pulse Resp BP Pulse Ox 05/21/22 01:13 65 05/21/22 00:58 36.5 C 77 18 136/92 05/21/22 00:43 36.5 C 77 22 136/92 92 05/20/22 23:53 70 18 130/79 05/20/22 23:13 70 18 137/81 05/20/22 21:15 97 05/20/22 21:13 67 18 121/72 Laboratory Results Cardiac Enzymes 05/20/22 Range/Units 20:05 AST 11 L (13-39) U/L Troponin I High Sens 6.5 (0-20) pg/ml Coagulation 05/20/22 Range/Units 18:33 PT 11.7 (9.0-12.0) Seconds APTT 31.0 (21.0-31.0) Seconds CBC 05/20/22 05/21/22 Range/Units 18:33 06:44 WBC 9.48 6.27 (4.8-10.8) K/uL RBC 4.36 L 4.05 L (4.7-6.1) M/uL Hgb 12.6 L 11.5 L (14.0-18.0) g/dL Hct 38.9 L 35.4 L (42-52) % Plt Count 249 207 (130-400) K/uL Neut # (Auto) 6.74 H 3.60 (1.4-6.5) K/uL Lymph # (Auto) 0.78 L 1.22 (1.2-3.4) K/uL [place] # (Auto) 1.82 H 1.29 H (0.11-0.59) K/uL Eos # (Auto) 0.11 0.12 (0-0.5) K/uL Baso # (Auto) 0.02 0.03 (0-0.2) K/uL Comprehensive Metabolic Panel 05/20/22 05/21/22 Range/Units 20:05 06:44 Sodium 138 137 (136-145) mmol/L Potassium 3.7 3.4 L (3.5-5.1) mmol/L Chloride 103 103 (98-107) mmol/L Carbon Dioxide 29 30 (21-32) mmol/L BUN 14 13 (6-23) mg/dl Creatinine 1.53 H 1.42 H (0.6-1.4) mg/dl Glucose 94 115 H (70-99(Fasting)) mg/dl Calcium 8.1 L 8.2 L (8.5-10.1) mg/dl AST 11 L (13-39) U/L ALT 5 L (7-52) U/L Alkaline Phosphatase 77 (34-104) U/L Total Protein 6.4 (6.0-8.3) gm/dl Albumin 3.1 L (3.4-5.0) gm/dl Intake and Output 05/20/22 05/21/22 05/21/22 22:59 06:59 14:59 Intake Total 1150 / 1370 220 / 1370 Output Total 500 / 500 Balance 1150 / 870 -280 / 870 Intake: IV 1150 / 1150 Sodium Chloride 0.9% 500 ml @ 500 / 500 999 mls/hr IV .Q31M [facility] Rx#: [id number] Left Forearm 650 / 650 Oral 220 / 220 Output: Urine 500 / 500 Other: Weight 86.9 kg 77.2 kg Weight Measurement Method Built in Bedscale Standing Scale Diagnostic Findings Echo 05/21/2022- inpatient PENDING* Echo 04/2021 out patient- [facility] The examination is adequate to evaluate the referral indication. A trivial circumferential pericardial effusion is noted. The left ventricular cavity size is normal. The LV wall thickness is mildly increased (concentric). The left ventricular wall motion is normal. The qualitative LV ejection fraction is 55-59% (normal). The aortic valve has three leaflets. Mild aortic valve sclerosis is present. Mild aortic valve regurgitation is present. The aortic root is mildly enlarged (4.4 cm). The proximal ascending thoracic aorta is mildly enlarged (4.3 cm). The left atrium is mildly enlarged. Compared to previous study dated 01/20/2019, no significant change is seen. Dimensions of aortic root and ascending aorta appear stable.
[2022-05-21] MEDS ORDERED: POTASSIUM CHLORIDE CRTAB 20 MEQ TABCR PO STA (07:54)
[2022-05-21] MEDS: EZETIMIBE 10 MG TABLET PO SCH (08:36)
[2022-05-21] MEDS: GABAPENTIN 300 MG CAP PO SCH ×3 (08:36→22:24)
[2022-05-21] MEDS: METOPROLOL SUCC 25MG EXT REL TAB PO SCH (08:37)
[2022-05-21] MEDS: PANTOprazole 40 MG TAB PO SCH (08:37)
[2022-05-21] MEDS: NSS + 20MEQ KCL 20 MEQ/1,000 ML BAG IV SCH ×2 (10:42→22:24)
--- NOTE | 2022-05-21 16:47 | Hospitalist Progress Note ---
Date of Service May 21, 2022 Assessment & Plan (1) Syncope: Plan: Likely secondary to orthostasis History of orthostatic hypotension as per records Patient possibly taking both propranolol and metoprolol cardiac medications as per account. (Possible functional disability) [place] dizzy during this episode but did not lose any consciousness Noted to have systolic blood pressure going down to 60s during physical therapy today Started with intravenous fluid and was advised to drink more fluid Appreciate cardiology input and recommendation Propanolol has been discontinued Will get orthostatic vitals every shift. Awaiting echo report May need midodrine if with persistent hypotension PT OT eval PAF on Eliquis, patient NSR Eliquis doses have been decreased to 2.5 mg twice daily Denies any chest pain and/or palpitation hx esophageal carcinoma status post surgery Is not having any symptoms CRI, creatinine at baseline Chronic anemia, hemoglobin at baseline Past tobacco/alcohol abuse DVT prophylaxis. Eliquis Full code Patient family requesting updates from providers. Ms. Magaly Epps (), contact #[phone] Mr. Myles Gallardosell (stepson), contact #[phone] Admission and Anticipated Discharge Date Admission Date: May 20, 2022 Subjective 05/21/2022 The patient was seen and examined in medical telemetry unit He was admitted with a spell which has been going on for a while and the patient is aware that this happens due to low blood pressure with ambulation and standing Noted to have significant orthostasis without any symptoms during physical therapy this morning He was a started with intravenous fluid He denies any other complaints Review of Systems Review of Systems: All systems reviewed and are unremarkable except as noted below Physical Exam Physical Exam: Lying in bed comfortably Constitutional: average body habitus; not ill appearing Eyes: PERRL, conjunctivae normal, anicteric sclerae ENMT: external ear and nose normal, oropharynx normal Neck: trachea midline, no thyromegaly Respiratory: no respiratory distress Auscultation: lungs clear to auscultation bilaterally Cardiovascular: Rate/Rhythm: regular rate and regular rhythm; not tachycardic Heart Sounds: normal S1 and normal S2; no murmur Extremities: no edema Gastrointestinal (Abdomen): Inspection/Auscultation: normal bowel sounds; abdomen not distended Percussion/Palpation: abdomen soft; abdomen nontender Musculoskeletal: No acute arthritis in any joint Psychiatric: Alert, awake and oriented x3. No focal sensory or no motor deficit appreciated Results & Data Results & Data ([facility]) Vital Signs (Past 12 Hours) Vital Signs Temp Pulse Pulse Resp BP Pulse Ox 05/21/22 16:00 37.1 C 87 18 101/60 92 05/21/22 15:00 83 05/21/22 12:11 36.5 C 70 18 102/62 93 05/21/22 07:24 72 Medications Administered Current Inpatient Medications Acetaminophen (Acetaminophen 325 Mg Tab) 650 mg PO Q4H PRN PRN Reason: Pain or Fever Stop: 06/20/22 00:42 Amitriptyline HCl (Amitriptyline Hcl 50 Mg Tab) [address] [facility] Stop: 06/20/22 20:59 Apixaban (Apixaban 2.5 Mg Tab) 2.5 mg PO BID [facility] Stop: 06/20/22 20:59 Buspirone HCl (Buspirone 5 Mg Tab) [address] [facility] Stop: 06/20/22 00:42 Last Admin: 05/21/22 02:22 Dose: 15 mg Documented by: Buspirone HCl (Buspirone 5 Mg Tab) 7.5 mg PO QAM [facility] Stop: 06/20/22 08:59 Last Admin: 05/21/22 08:36 Dose: 7.5 mg Documented by: Diclofenac Sodium (Diclofenac Sod 1% Gel 100 Gm Tube) 4 gm EXT DAILY PRN; Protocol PRN Reason: Pain Stop: 06/20/22 00:42 Ezetimibe (Ezetimibe 10 Mg Tablet) 5 mg PO DAILY [facility] Stop: 06/20/22 08:59 Last Admin: 05/21/22 08:36 Dose: 5 mg Documented by: Fluvastatin Sodium (Fluvastatin Sodium 20 Mg Cap) 40 mg PO BID [facility] Stop: 06/20/22 20:59 Gabapentin (Gabapentin 300 Mg Cap) 600 mg PO TID [facility] Stop: 06/20/22 08:59 Last Admin: 05/21/22 12:52 Dose: 600 mg Documented by: Promethazine HCl 12.5 mg/ (Sodium Chloride) 50.5 mls @ 202 mls/hr IV Q6H PRN PRN Reason: Nausea And Vomiting Stop: 06/20/22 00:42 Potassium Chloride/Sodium Chloride (Normal Saline W/20 Meq Kcl) 20 meq in 1,000 mls @ 100 mls/hr IV .Q10H [facility]; Protocol Stop: 05/22/22 15:59 Last Admin: 05/21/22 10:42 Dose: 100 mls/hr Documented by: Lorazepam (Lorazepam 0.5 Mg Tab) 0.5 mg PO TID PRN PRN Reason: Anxiety Stop: 06/20/22 00:42 Metoprolol Succinate (Metoprolol Succ 25mg Ext Rel Tab) 12.5 mg PO QAM [facility] Stop: 06/20/22 08:59 Last Admin: 05/21/22 08:37 Dose: 12.5 mg Documented by: Miscellaneous (Fluvastatin 80 Mg Tablet Extended Release 24 Hr - Order Awaiting Action) 1 ea N/A QS [facility] Stop: 06/20/22 07:59 Last Admin: 05/21/22 11:14 Dose: Not Given Documented by: Pantoprazole Sodium (Pantoprazole 40 Mg Tab) [address] [facility] Stop: 06/20/22 08:59 Last Admin: 05/21/22 08:37 Dose: 40 mg Documented by:
[2022-05-21] MEDS ORDERED: APIXABAN 5 MG TABLET PO SCH (21:00)
[2022-05-21] MEDS: FLUVASTATIN SODIUM 20 MG CAP PO SCH (22:25)
[2022-05-21] MEDS: APIXABAN 2.5 MG TAB PO SCH (22:25)
[2022-05-21] MEDS: AMITRIPTYLINE HCL 50 MG TAB PO SCH (22:25)
--- NOTE | 2022-05-21 22:39 | Electrocardiogram Report ---
Test Reason : Blood Pressure : / mmHG Vent. Rate : 062 BPM Atrial Rate : 062 BPM P-R Int : 176 ms QRS Dur : 086 ms QT Int : 430 ms P-R-T Axes : 073 054 054 degrees QTc Int : 436 ms Normal sinus rhythm Normal ECG When compared with ECG of 07-SEP-2018 13:25, Questionable change in QRS axis Confirmed by Gulshan Kaufman ([id number]) on 05/21/2022 10:39:09 PM Referred By: REFERRED SELF Confirmed By:Gulshan Kaufman
[2022-05-22 06:43] LABS: Basophils # (auto) 0.03 K/uL (0-0.2); Basophils % (auto) 0.6 %; Eosinophils # (auto) 0.22 K/uL (0-0.5); Eosinophils % (auto) 4.5 %; Hemoglobin 11.1 g/dL (14.0-18.0); Immature Granulocytes # (auto) 0.01 K/uL (0.00-0.02); Immature Granulocytes % (auto) 0.2 %; Lymphocytes # (auto) 1.32 K/uL (1.2-3.4); Lymphocytes % (auto) 27.1 %; Mean Corpuscular Hgb Conc 31.7 g/dL (32-36); Mean Corpuscular Volume 88.4 fL (80-100); Mean Platelet Volume 10.3 fL (7.4-10.4); Monocytes # (auto) 1.04 K/uL (0.11-0.59); Monocytes % (auto) 21.4 %; Neutrophils # (auto) 2.25 K/uL (1.4-6.5); Neutrophils % (auto) 46.2 %; Platelet Count 220 K/uL (130-400); RDW Coefficient of Variation 17.4 % (11.5-14.5); RDW Standard Deviation 56.8 fL (36.4-46.3); Red Blood Count 3.96 M/uL (4.7-6.1); White Blood Count 4.87 K/uL (4.8-10.8)
[2022-05-22 07:12] LABS: BUN Creatinine Ratio 11.6 (10-20); Est GFR (African American) 59.4 ml/min; Est GFR (Non-African American) 51.3 ml/min; Magnesium 1.9 mg/dl (1.7-2.4); Potassium 4.4 mmol/L (3.5-5.1)
--- NOTE | 2022-05-22 07:34 | Cardiology Progress Note ---
Date of Service May 22, 2022 Assessment & Plan (1) Orthostatic hypotension: (2) Weakness: (3) Near syncope: Plan: Episodes of dizziness/weakness with presyncope with quick position changes- orthostasis confirmed on orthostatic VS yesterday during PT. Carries a history of orthostatic BP. Telemetry did not show any significant bradycardia or pauses. - Agree with discontinuing nonspecific beta amadeo, propranolol with continuation of metoprolol. Metoprolol should not affect the patient's BP significantly. - Symptoms seem to have an orthostatic cause. Recommend obtaining orthostatic vital signs each shift. - Recommending increased hydration. Okay to allow for a slightly higher BP to avoid orthostasis. - Will add midodrine 2.5 mg BID while inpatient to see if this improves his orthostasis, monitor closely for hypertension. - Recommend use of compression socks while awake. - Replace electrolytes as needed, potassium goal of 4.0 and mag goal of 2.0 - Agree with PT/OT evaluation. - Further recommendations pending Echo results. (4) Paroxysmal atrial fibrillation: Plan: [id number] score of 3 (age 1, HTN). SR on telemetry during admission -Patient on reduced dose Eliquis as an outpatient due to age and renal function, reduce Eliquis to 2.5 mg BID -Continue metoprolol succinate 12.5 mg daily. Monitor for bradyarrhythmias. Plan: Case discussed with Dr. Zavala- will follow. Admission and Anticipated Discharge Date Admission Date: May 20, 2022 Supervising Physician Co-Signing Physician Notes Late entry: Patient seen and examined 05/22/2022, agree with assessment and plan as documented by PEACE Sampson. Subjective 81 year old male. Having episodes of near syncope and lightheadedness with position changes/weakness. Symptoms due to orthostatic hypotension. Orthostatic during PT with a drop in his systolic to mid 60s. Patient was treated with IV fluids. Upon admission patient was on both propranolol and metoprolol for an unknown reason- no personal history of tremor. Propranolol has since been discontinued in favor of metoprolol. Echo: pending Weight: 77.2 kg >> 78 kg Tele: SR PACs 70-80s Upon entrance into the room patient asleep in bed, but woke easily. No acute complaints. Continues to get dizziness with position changes. Unable to ambulate long distances without feeling presyncopal despite IV fluids. No chest pain or shortness of breath, no orthopnea or PND. Review of Systems Review of Systems: All systems reviewed & are unremarkable except as noted in HPI & below Physical Exam Physical Exam: General: No acute distress. A+Ox3. HEENT: Normocephalic. Atraumatic. PERRL. EOMI. Conjunctiva and sclera clear. NECK: No carotid bruits. No JVD. Carotid upstrokes are brisk. Heart: RRR. S1 and S2 noted without murmur, rubs, gallops. PMI non displaced. Lungs: Clear lung sounds bilaterally, no rhonchi wheezing or rales. Abdomen: Normal bowel sounds. Soft. Nontender. No masses or organomegaly. No abdominal bruits. Extremities: No edema. No clubbing or cyanosis. Pulses: radial=2/4, posterior tibial=2/4, dorsalis pedis = 2/4. NEURO: No focal deficits. PSYCH: Normal. Results & Data ([facility]) Vital Signs (Past 12 Hours) Vital Signs Temp Pulse Pulse Resp BP Pulse Ox 05/22/22 07:24 68 05/22/22 04:00 36.4 C L 78 18 145/79 H 96 05/22/22 00:30 36.4 C L 77 18 105/61 96 05/21/22 23:00 85 05/21/22 20:39 36.7 C 88 18 108/70 93 Laboratory Results CBC 05/22/22 Range/Units 06:06 WBC 4.87 (4.8-10.8) K/uL RBC 3.96 L (4.7-6.1) M/uL Hgb 11.1 L (14.0-18.0) g/dL Hct 35.0 L (42-52) % Plt Count 220 (130-400) K/uL Neut # (Auto) 2.25 (1.4-6.5) K/uL Lymph # (Auto) 1.32 (1.2-3.4) K/uL [place] # (Auto) 1.04 H (0.11-0.59) K/uL Eos # (Auto) 0.22 (0-0.5) K/uL Baso # (Auto) 0.03 (0-0.2) K/uL Comprehensive Metabolic Panel 05/22/22 Range/Units 06:06 Sodium 139 (136-145) mmol/L Potassium 4.4 D (3.5-5.1) mmol/L Chloride 108 H (98-107) mmol/L Carbon Dioxide 28 (21-32) mmol/L BUN 15 (6-23) mg/dl Creatinine 1.29 (0.6-1.4) mg/dl Glucose 94 (70-99(Fasting)) mg/dl Calcium 8.0 L (8.5-10.1) mg/dl Intake and Output 05/21/22 05/22/22 05/22/22 22:59 06:59 14:59 Intake Total 1300 / 1900 200 / 1900 Output Total 550 / 1100 Balance 750 / 800 200 / 800 Intake: IV 1000 / 1000 Nss + 20Meq KCl 20 meq In 1,000 1000 / 1000 ml @ 100 mls/hr IV .Q10H [facility] Rx#:[id number] Oral 300 / 900 200 / 900 Output: Urine 550 / 1100 Other: Weight 78 kg Weight Measurement Method Built in [facility]
[2022-05-22] MEDS: NSS + 20MEQ KCL 20 MEQ/1,000 ML BAG IV SCH (08:51)
[2022-05-22] MEDS: EZETIMIBE 10 MG TABLET PO SCH (08:51)
[2022-05-22] MEDS: APIXABAN 2.5 MG TAB PO SCH ×2 (08:52→19:59)
[2022-05-22] MEDS: PANTOprazole 40 MG TAB PO SCH (08:52)
[2022-05-22] MEDS: METOPROLOL SUCC 25MG EXT REL TAB PO SCH (08:52)
[2022-05-22] MEDS: FLUVASTATIN SODIUM 20 MG CAP PO SCH ×2 (08:52→19:59)
[2022-05-22] MEDS: GABAPENTIN 300 MG CAP PO SCH ×3 (08:53→20:00)
[2022-05-22] MEDS: busPIRone 5 MG TAB PO SCH ×2 (08:53→19:59)
[2022-05-22] MEDS ORDERED: ENOXAPARIN 80 MG/0.8 ML SYR SQ ONE (11:57)
[2022-05-22] MEDS: MIDODRINE HCL 2.5 MG TAB PO SCH ×2 (12:38→17:36)
--- NOTE | 2022-05-22 15:57 | Hospitalist Progress Note ---
Date of Service May 22, 2022 Assessment & Plan (1) Syncope: Plan: Likely secondary to orthostasis History of orthostatic hypotension as per records Patient possibly taking both propranolol and metoprolol cardiac medications as per account. (Possible functional disability) [place] dizzy during this episode but did not lose any consciousness Noted to have systolic blood pressure going down to 60s during physical therapy today Started with intravenous fluid and was advised to drink more fluid Appreciate cardiology input and recommendation Propanolol has been discontinued Will get orthostatic vitals every shift. Awaiting echo report May need midodrine if with persistent hypotension PT OT eval Orthostatic vitals are improving with intravenous fluid and the kidney function is improved to Midodrine was added by the acid recovery operator Echo has been pending until now Will admit him and likely discharge tomorrow PAF on Eliquis, patient NSR Eliquis doses have been decreased to 2.5 mg twice daily Denies any chest pain and/or palpitation hx esophageal carcinoma status post surgery Is not having any symptoms CRI, creatinine at baseline Chronic anemia, hemoglobin at baseline Past tobacco/alcohol abuse DVT prophylaxis. Eliquis Full code Patient family requesting updates from providers. Ms. Magaly Epps (), contact #[phone] Mr. Myles Escoebdo (stepson), contact #[phone] Admission and Anticipated Discharge Date Admission Date: May 20, 2022 Subjective 05/21/2022 The patient was seen and examined in medical telemetry unit He was admitted with a spell which has been going on for a while and the patient is aware that this happens due to low blood pressure with ambulation and standing Noted to have significant orthostasis without any symptoms during physical therapy this morning He was a started with intravenous fluid He denies any other complaints 05/22/2022 The patient was seen and examined in medical telemetry unit His symptoms of dizziness have decreased Orthostatic vitals are improving too He was advised to drink more fluid Review of Systems Review of Systems: All systems reviewed and are unremarkable except as noted below Physical Exam Physical Exam: Lying in bed comfortably Constitutional: average body habitus; not ill appearing Eyes: PERRL, conjunctivae normal, anicteric sclerae ENMT: external ear and nose normal, oropharynx normal Neck: trachea midline, no thyromegaly Respiratory: no respiratory distress Auscultation: lungs clear to auscultation bilaterally Cardiovascular: Rate/Rhythm: regular rate and regular rhythm; not tachycardic Heart Sounds: normal S1 and normal S2; no murmur Extremities: no edema Gastrointestinal (Abdomen): Inspection/Auscultation: normal bowel sounds; abdomen not distended Percussion/Palpation: abdomen soft; abdomen nontender Musculoskeletal: No acute arthritis in any joint Neurologic: Alert, awake and oriented x3. No focal sensory and/or motor deficit appreciated Psychiatric: A+Ox3, euthymic affect Lymphatic: no cervical or axillary lymphadenopathy Results & Data Results & Data ([facility]) Vital Signs (Past 12 Hours) Vital Signs Temp Pulse Pulse Resp BP Pulse Ox 05/22/22 15:51 78 05/22/22 15:45 36.5 C 98 H 20 136/78 96 05/22/22 11:50 36.6 C 78 20 132/72 93 05/22/22 07:24 68 05/22/22 04:00 36.4 C L 78 18 145/79 H 96 Laboratory Results Short CBC 05/22/22 Range/Units 06:06 WBC 4.87 (4.8-10.8) K/uL Hgb 11.1 L (14.0-18.0) g/dL Hct 35.0 L (42-52) % Plt Count 220 (130-400) K/uL BMP 05/22/22 06:06 Sodium 139 Potassium 4.4 D Chloride 108 H Carbon Dioxide 28 BUN 15 Creatinine 1.29 Glucose 94 Calcium 8.0 L Medications Administered Current Inpatient Medications Acetaminophen (Acetaminophen 325 Mg Tab) 650 mg PO Q4H PRN PRN Reason: Pain or Fever Stop: 06/20/22 00:42 Amitriptyline HCl (Amitriptyline Hcl 50 Mg Tab) 50 mg PO HS [facility] Stop: 06/20/22 20:59 Last Admin: 05/21/22 22:25 Dose: 50 mg Documented by: Apixaban (Apixaban 2.5 Mg Tab) 2.5 mg PO BID [facility] Stop: 06/20/22 20:59 Last Admin: 05/22/22 08:52 Dose: 2.5 mg Documented by: Buspirone HCl (Buspirone 5 Mg Tab) 15 mg PO HS [facility] Stop: 06/20/22 00:42 Last Admin: 05/21/22 22:24 Dose: 15 mg Documented by: Buspirone HCl (Buspirone 5 Mg Tab) 7.5 mg PO QAM [facility] Stop: 06/20/22 08:59 Last Admin: 05/22/22 08:53 Dose: 7.5 mg Documented by: Diclofenac Sodium (Diclofenac Sod 1% Gel 100 Gm Tube) 4 gm EXT DAILY PRN; Protocol PRN Reason: Pain Stop: 06/20/22 00:42 Ezetimibe (Ezetimibe 10 Mg Tablet) 5 mg PO DAILY [facility] Stop: 06/20/22 08:59 Last Admin: 05/22/22 08:51 Dose: 5 mg Documented by: Fluvastatin Sodium (Fluvastatin Sodium 20 Mg Cap) 40 mg PO BID [facility] Stop: 06/20/22 20:59 Last Admin: 05/22/22 08:52 Dose: 40 mg Documented by: Gabapentin (Gabapentin 300 Mg Cap) 600 mg PO TID [facility] Stop: 06/20/22 08:59 Last Admin: 05/22/22 12:38 Dose: 600 mg Documented by: Promethazine HCl 12.5 mg/ (Sodium Chloride) 50.5 mls @ 202 mls/hr IV Q6H PRN PRN Reason: Nausea And Vomiting Stop: 06/20/22 00:42 Potassium Chloride/Sodium Chloride (Normal Saline W/20 Meq Kcl) 20 meq in 1,000 mls @ 100 mls/hr IV .Q10H [facility]; Protocol Stop: 05/22/22 15:59 Last Admin: 05/22/22 08:51 Dose: 100 mls/hr Documented by: Lorazepam (Lorazepam 0.5 Mg Tab) 0.5 mg PO TID PRN PRN Reason: Anxiety Stop: 06/20/22 00:42 Metoprolol Succinate (Metoprolol Succ 25mg Ext Rel Tab) 12.5 mg PO QAM [facility] Stop: 06/20/22 08:59 Last Admin: 05/22/22 08:52 Dose: 12.5 mg Documented by: Midodrine (Midodrine Hcl 2.5 Mg Tab) 2.5 mg PO TID@0800,1200,1700 [facility] Stop: 06/21/22 11:59 Last Admin: 05/22/22 12:38 Dose: 2.5 mg Documented by: Miscellaneous (Fluvastatin 80 Mg Tablet Extended Release 24 Hr - Order Awaiting Action) 1 ea N/A QS [facility] Stop: 06/20/22 07:59 Last Admin: 05/22/22 08:51 Dose: Not Given Documented by: Pantoprazole Sodium (Pantoprazole 40 Mg Tab) 40 mg PO DAILY [facility] Stop: 06/20/22 08:59 Last Admin: 05/22/22 08:52 Dose: 40 mg Documented by:
[2022-05-22] MEDS: AMITRIPTYLINE HCL 50 MG TAB PO SCH (19:58)
[2022-05-23] MEDS: LORazepam 0.5 MG TAB PO PRN ×2 (00:25→20:10)
[2022-05-23] MEDS: GABAPENTIN 300 MG CAP PO SCH ×3 (07:44→20:11)
[2022-05-23] MEDS: EZETIMIBE 10 MG TABLET PO SCH (07:44)
[2022-05-23] MEDS: busPIRone 5 MG TAB PO SCH ×2 (07:45→20:12)
[2022-05-23] MEDS: APIXABAN 2.5 MG TAB PO SCH ×2 (07:46→20:13)
[2022-05-23] MEDS: FLUVASTATIN SODIUM 20 MG CAP PO SCH ×2 (07:46→20:12)
[2022-05-23] MEDS: PANTOprazole 40 MG TAB PO SCH (07:46)
--- NOTE | 2022-05-23 07:46 | Cardiology Progress Note ---
Date of Service May 23, 2022 Assessment & Plan (1) Orthostatic hypotension: (2) Weakness: (3) Near syncope: Plan: Episodes of dizziness/weakness with presyncope with quick position changes- orthostasis confirmed on orthostatic VS yesterday during PT. Carries a history of orthostatic BP. Telemetry did not show any significant bradycardia or pauses. - Agree with discontinuing nonspecific beta amadeo, propranolol with continuation of metoprolol. Metoprolol should not affect the patient's BP significantly. - Symptoms due to orthostasis. Improved since addition of midodrine 2.5 mg TID- continue - Recommend increased hydration. Okay to allow for a slightly higher BP to avoid orthostasis. - Recommend use of compression socks while awake. - Replace electrolytes as needed, potassium goal of 4.0 and mag goal of 2.0 - Agree with PT/OT evaluation. (4) Paroxysmal atrial fibrillation: Plan: [id number] score of 3 (age 1, HTN). SR on telemetry during admission -Patient on reduced dose Eliquis as an outpatient due to age and renal function, Continue Eliquis to 2.5 mg BID -Continue metoprolol succinate 12.5 mg daily. Plan: Case discussed with Dr. Zavala- will follow. Admission and Anticipated Discharge Date Admission Date: May 22, 2022 Supervising Physician Co-Signing Physician Notes Supervising Physician Attestation: I have personally performed a history and physical examination on the patient. I agree with the nurse practitioner's findings and plan as documented with the following additions. Subjective: Patient without subjective complaints. Telemetry reveals sinus rhythm in the 60s. Exam: Pulmonary: Clear to auscultation bilaterally Cardiovascular regular rhythm, no murmurs No edema Data: Echocardiogram performed 05/22/2022, LVEF 66 5%, mild concentric left ventricular perjury, grade 2 diastolic dysfunction, moderate aortic valve sclerosis without stenosis, aortic root moderately enlarged 4.5 cm Assessment and Plan: Orthostatic hypotension History of paroxysmal atrial fibrillation -Continue metoprolol. -Midodrine added for blood pressure support, tolerating well. Patient stable from cardiac perspective for discharge when deemed stable from a PT standpoint. DVT prophylaxis: Patient on full anticoagulation for paroxysmal atrial fibrillation, Eliquis 2.5 mg twice daily Raj Zavala, DO Subjective 81 year old male. Having episodes of near syncope and lightheadedness with position changes/weakness. Symptoms due to orthostatic hypotension. Orthostatic during PT with a drop in his systolic to mid 60s. Patient was treated with IV fluids. Upon admission patient was on both propranolol and metoprolol for an unknown reason- no personal history of tremor. Propranolol has since been discontinued in favor of metoprolol. Continued orthostatis with activity- midodrine 2.5 mg TID was started yesterday, 05/23. Echo 05/22: LVEF 60-65%. mild concentric LVH, no WMA, grade II diastolic dysfunction. Moderate aortic sclerosis without stenosis. Mild TR. estimated PASP of 42 mmHg, aortic root enlarged at 4.5 cm Tele: PACs 60-70s Upon entrance into the room patient resting comfortably in bed without concern. No further episodes of dizziness of presyncope since starting midodrine. No chest pain or shortness of breath. No palpitations. No signs of hypervolemia. Review of Systems Review of Systems: All systems reviewed & are unremarkable except as noted in HPI & below Physical Exam Physical Exam: General: No acute distress. A+Ox3. HEENT: Normocephalic. Atraumatic. PERRL. EOMI. Conjunctiva and sclera clear. NECK: No carotid bruits. No JVD. Carotid upstrokes are brisk. Heart: RRR. S1 and S2 noted without murmur, rubs, gallops. PMI non displaced. Lungs: Clear lung sounds bilaterally, no rhonchi wheezing or rales. Abdomen: Normal bowel sounds. Soft. Nontender. No masses or organomegaly. No abdominal bruits. Extremities: No edema. No clubbing or cyanosis. Pulses: radial=2/4, posterior tibial=2/4, dorsalis pedis = 2/4. NEURO: No focal deficits. PSYCH: Normal. Results & Data ([facility]) Vital Signs (Past 12 Hours) Vital Signs Temp Pulse Pulse Resp BP Pulse Ox 05/23/22 07:30 36.3 C L 79 18 153/78 H 92 05/23/22 04:00 36.7 C 69 20 129/73 95 05/23/22 01:52 88 05/23/22 00:00 36.8 C 88 18 139/72 93 Laboratory Results Intake and Output 07/06/22 07/07/22 07/07/22 22:59 06:59 14:59 Intake Total 1240 / 2755 Balance 1240 / 2755 Intake: IV 1000 / 1999 Nss + 20Meq KCl 20 meq In 1,000 1000 / 1999 ml @ 100 mls/hr IV .Q10H [facility] Rx#:[id number] Oral 240 / 751 Other: Other Intake Source SIPS Weight 77.1 kg Weight Measurement Method Standing Scale
[2022-05-23] MEDS: METOPROLOL SUCC 25MG EXT REL TAB PO SCH (07:47)
[2022-05-23] MEDS: MIDODRINE HCL 2.5 MG TAB PO SCH ×3 (07:48→17:29)
--- NOTE | 2022-05-23 14:04 | Hospitalist Progress Note ---
Date of Service May 23, 2022 Assessment & Plan (1) Syncope: Plan: Likely secondary to orthostasis History of orthostatic hypotension as per records Patient possibly taking both propranolol and metoprolol cardiac medications as per account. (Possible functional disability) [place] dizzy during this episode but did not lose any consciousness Noted to have systolic blood pressure going down to 60s during physical therapy today Started with intravenous fluid and was advised to drink more fluid Appreciate cardiology input and recommendation Propanolol has been discontinued Will get orthostatic vitals every shift. Awaiting echo report May need midodrine if with persistent hypotension PT OT eval Orthostatic vitals are improving with intravenous fluid and the kidney function is improved to Midodrine was added by the admissions coordinator Echo has been pending until now Will admit him and likely discharge tomorrow Has had physical therapy and recommended home PAF on Eliquis, patient NSR Eliquis doses have been decreased to 2.5 mg twice daily Denies any chest pain and/or palpitation Heart rate remains elevated at 103 this afternoon Will increase metoprolol succinate to 25 mg every morning from 12.5 mg every morning hx esophageal carcinoma status post surgery Is not having any symptoms CRI, creatinine at baseline Chronic anemia, hemoglobin at baseline Past tobacco/alcohol abuse DVT prophylaxis. Eliquis Full code Patient family requesting updates from providers. Ms. Magaly Epps (), contact #[phone] Mr. Bueno Gregg (stepson), contact #[phone] Admission and Anticipated Discharge Date Admission Date: May 22, 2022 Subjective 05/21/2022 The patient was seen and examined in medical telemetry unit He was admitted with a spell which has been going on for a while and the patient is aware that this happens due to low blood pressure with ambulation and standing Noted to have significant orthostasis without any symptoms during physical therapy this morning He was a started with intravenous fluid He denies any other complaints 05/22/2022 The patient was seen and examined in medical telemetry unit His symptoms of dizziness have decreased Orthostatic vitals are improving too He was advised to drink more fluid 05/23/2022 The patient was seen and examined in medical telemetry unit He denies any more dizziness and/or presyncope Orthostasis has improved Has had PT evaluation and recommended home Review of Systems Review of Systems: All systems reviewed and are unremarkable except as noted below Physical Exam Physical Exam: Lying in bed comfortably Constitutional: average body habitus; not ill appearing Eyes: PERRL, conjunctivae normal, anicteric sclerae ENMT: external ear and nose normal, oropharynx normal Neck: trachea midline, no thyromegaly Respiratory: no respiratory distress Auscultation: lungs clear to auscultation bilaterally Cardiovascular: Rate/Rhythm: regular rate and regular rhythm; not tachycardic Heart Sounds: normal S1 and normal S2; no murmur Extremities: no edema Gastrointestinal (Abdomen): Inspection/Auscultation: normal bowel sounds; abdomen not distended Percussion/Palpation: abdomen soft; abdomen nontender Musculoskeletal: No acute arthritis involving any joint Neurologic: Alert, awake and oriented x3. No focal sensory or motor deficit appreciated Psychiatric: A+Ox3, euthymic affect Lymphatic: no cervical or axillary lymphadenopathy Results & Data Results & Data ([facility]) Vital Signs (Past 12 Hours) Vital Signs Temp Pulse Pulse Resp BP Pulse Ox 05/23/22 11:51 36.5 C 103 H 18 139/75 94 05/23/22 10:22 74 05/23/22 07:30 36.3 C L 79 18 153/78 H 92 05/23/22 04:00 36.7 C 69 20 129/73 95 Medications Administered Current Inpatient Medications Acetaminophen (Acetaminophen 325 Mg Tab) 650 mg PO Q4H PRN PRN Reason: Pain or Fever Stop: 06/20/22 00:42 Amitriptyline HCl (Amitriptyline Hcl 50 Mg Tab) 50 mg PO [facility] Stop: 06/20/22 20:59 Last Admin: 05/22/22 19:58 Dose: 50 mg Documented by: Apixaban (Apixaban 2.5 Mg Tab) 2.5 mg PO BID [facility] Stop: 06/20/22 20:59 Last Admin: 05/23/22 07:46 Dose: 2.5 mg Documented by: Buspirone HCl (Buspirone 5 Mg Tab) 15 mg PO HS [facility] Stop: 06/20/22 00:42 Last Admin: 05/22/22 19:59 Dose: 15 mg Documented by: Buspirone HCl (Buspirone 5 Mg Tab) 7.5 mg PO QAM [facility] Stop: 06/20/22 08:59 Last Admin: 05/23/22 07:45 Dose: 7.5 mg Documented by: Diclofenac Sodium (Diclofenac Sod 1% Gel 100 Gm Tube) 4 gm EXT DAILY PRN; Protocol PRN Reason: Pain Stop: 06/20/22 00:42 Ezetimibe (Ezetimibe 10 Mg Tablet) 5 mg PO DAILY [facility] Stop: 06/20/22 08:59 Last Admin: 05/23/22 07:44 Dose: 5 mg Documented by: Fluvastatin Sodium (Fluvastatin Sodium 20 Mg Cap) 40 mg PO BID [facility] Stop: 06/20/22 20:59 Last Admin: 05/23/22 07:46 Dose: 40 mg Documented by: Gabapentin (Gabapentin 300 Mg Cap) 600 mg PO TID [facility] Stop: 06/20/22 08:59 Last Admin: 05/23/22 12:22 Dose: 600 mg Documented by: Promethazine HCl 12.5 mg/ (Sodium Chloride) 50.5 mls @ 202 mls/hr IV Q6H PRN PRN Reason: Nausea And Vomiting Stop: 06/20/22 00:42 Lorazepam (Lorazepam 0.5 Mg Tab) 0.5 mg PO TID PRN PRN Reason: Anxiety Stop: 06/20/22 00:42 Last Admin: 05/23/22 00:25 Dose: 0.5 mg Documented by: Metoprolol Succinate (Metoprolol Succ 25mg Ext Rel Tab) 12.5 mg PO QAM [facility] Stop: 06/20/22 08:59 Last Admin: 05/23/22 07:47 Dose: 12.5 mg Documented by: Midodrine (Midodrine Hcl 2.5 Mg Tab) 2.5 mg PO TID@0800,1200,1700 [facility] Stop: 06/21/22 11:59 Last Admin: 05/23/22 12:22 Dose: 2.5 mg Documented by: Miscellaneous (Fluvastatin 80 Mg Tablet Extended Release 24 Hr - Order Awaiting Action) 1 ea N/A QS [facility] Stop: 06/20/22 07:59 Last Admin: 05/23/22 07:47 Dose: Not Given Documented by: Pantoprazole Sodium (Pantoprazole 40 Mg Tab) 40 mg PO DAILY [facility] Stop: 06/20/22 08:59 Last Admin: 05/23/22 07:46 Dose: 40 mg Documented by:
[2022-05-23] MEDS ORDERED: METOPROLOL TARTRATE 25 MG TAB PO ONE (14:07)
[2022-05-23] MEDS: SODIUM CHLORIDE 0.9% 1000ML 1,000 ML IV SCH (17:28)
[2022-05-23] MEDS: AMITRIPTYLINE HCL 50 MG TAB PO SCH (20:13)
[2022-05-24] MEDS ORDERED: OLANZapine 10 MG/2.1 ML SDV IM PRN (01:44)
[2022-05-24 02:24] LABS: Basophils # (auto) 0.04 K/uL (0-0.2); Basophils % (auto) 0.8 %; Eosinophils # (auto) 0.16 K/uL (0-0.50); Eosinophils % (auto) 3.3 %; Hematocrit (blood only) 33.8 % (40.1-51.0); Hemoglobin 10.6 g/dl (14.0-18.0); Immature Granulocytes # (auto) 0.01 K/uL (0.00-0.02); Immature Granulocytes % (auto) 0.2 %; Lymphocytes # (auto) 1.08 K/uL (1.2-3.4); Lymphocytes % (auto) 22.2 %; Mean Corpuscular Hgb Conc 31.4 g/dL (32.0-36.0); Mean Corpuscular Volume 89.4 fL (80.0-100.0); Mean Platelet Volume 10.4 fL (9.4-12.4); Monocytes # (auto) 0.72 K/uL (0.24-0.82); Monocytes % (auto) 14.8 %; Neutrophils # (auto) 2.85 K/uL (1.4-6.5); Neutrophils % (auto) 58.7 %; Platelet Count 212 K/uL (130-400); RDW Coefficient of Variation 16.7 % (11.5-14.5); RDW Standard Deviation 54.9 fL (36.4-46.3); Red Blood Count 3.78 M/uL (4.63-6.08); White Blood Count 4.86 K/ul (4.8-10.8)
[2022-05-24 03:08] LABS: BUN Creatinine Ratio 14.4 (10-20); Calcium 7.9 mg/dl (8.5-10.1); Creatinine Clr Calc Pharmacy 51.4 ml/min; Est GFR (African American) 66.2 ml/min; Est GFR (Non-African American) 57.1 ml/min; Potassium 4.1 mmol/L (3.5-5.1)
[2022-05-24] MEDS: SODIUM CHLORIDE 0.9% 1000ML 1,000 ML IV SCH ×2 (05:46→17:38)
[2022-05-24] MEDS: APIXABAN 2.5 MG TAB PO SCH ×2 (09:24→20:19)
[2022-05-24] MEDS: FLUVASTATIN SODIUM 20 MG CAP PO SCH ×2 (09:24→20:18)
[2022-05-24] MEDS: busPIRone 5 MG TAB PO SCH ×2 (09:28→20:19)
[2022-05-24] MEDS: EZETIMIBE 10 MG TABLET PO SCH (09:29)
[2022-05-24] MEDS: GABAPENTIN 300 MG CAP PO SCH ×3 (09:29→20:14)
[2022-05-24] MEDS: METOPROLOL SUCC 25MG EXT REL TAB PO SCH (09:30)
[2022-05-24] MEDS: PANTOprazole 40 MG TAB PO SCH (09:30)
[2022-05-24] MEDS: MIDODRINE HCL 2.5 MG TAB PO SCH ×3 (09:33→17:10)
--- NOTE | 2022-05-24 15:59 | Hospitalist Progress Note ---
Date of Service May 24, 2022 Assessment & Plan (1) Syncope: Plan: Likely secondary to orthostasis History of orthostatic hypotension as per records Patient possibly taking both propranolol and metoprolol cardiac medications as per account. (Possible functional disability) [place] dizzy during this episode but did not lose any consciousness Noted to have systolic blood pressure going down to 60s during physical therapy today Started with intravenous fluid and was advised to drink more fluid Appreciate cardiology input and recommendation Propanolol has been discontinued Will get orthostatic vitals every shift. Awaiting echo report May need midodrine if with persistent hypotension PT OT eval Orthostatic vitals are improving with intravenous fluid and the kidney function is improved to Midodrine was added by the au pair Echo has been pending until now Will admit him and likely discharge tomorrow Has had physical therapy and recommended home Acute confusion Noted to be very confused yesterday 05/23/2022 and was not discharged Received a dose of Zyprexa last night due to anxiety and agitation Lorazepam is on hold He was drowsy this morning but in the afternoon much brighter and minimally confused Discussed with the family members and the patient He will be observed overnight and likely discharge tomorrow He may have baseline dementia PAF on Eliquis, patient NSR Eliquis doses have been decreased to 2.5 mg twice daily Denies any chest pain and/or palpitation Heart rate remains elevated at 103 this afternoon Will increase metoprolol succinate to 25 mg every morning from 12.5 mg every morning hx esophageal carcinoma status post surgery Is not having any symptoms CRI, creatinine at baseline Chronic anemia, hemoglobin at baseline Past tobacco/alcohol abuse DVT prophylaxis. Eliquis Full code Patient family requesting updates from providers. Ms. Magaly Epps (), contact #[phone] Mr. Myles Escobedo (stepson), contact #[phone] Admission and Anticipated Discharge Date Admission Date: May 22, 2022 Subjective 05/21/2022 The patient was seen and examined in medical telemetry unit He was admitted with a spell which has been going on for a while and the patient is aware that this happens due to low blood pressure with ambulation and standing Noted to have significant orthostasis without any symptoms during physical therapy this morning He was a started with intravenous fluid He denies any other complaints 05/22/2022 The patient was seen and examined in medical telemetry unit His symptoms of dizziness have decreased Orthostatic vitals are improving too He was advised to drink more fluid 05/23/2022 The patient was seen and examined in medical telemetry unit He denies any more dizziness and/or presyncope Orthostasis has improved Has had PT evaluation and recommended home 05/24/2022 The patient was seen and examined in medical telemetry unit in presence of the family members He received a dose of Zyprexa last night but no Ativan He has been feeling much better this morning though was drowsy In the afternoon his condition improved a lot and shows minimal confusion We will observe him overnight and likely discharge tomorrow Review of Systems Review of Systems: All systems reviewed and are unremarkable except as noted below Physical Exam Physical Exam: Lying in bed comfortably Constitutional: average body habitus; not ill appearing Eyes: PERRL, conjunctivae normal, anicteric sclerae ENMT: external ear and nose normal, oropharynx normal Neck: trachea midline, no thyromegaly Respiratory: no respiratory distress Auscultation: lungs clear to auscultation bilaterally Cardiovascular: Rate/Rhythm: regular rate and regular rhythm; not tachycardic Heart Sounds: normal S1 and normal S2; no murmur Extremities: no edema Gastrointestinal (Abdomen): Inspection/Auscultation: normal bowel sounds; abdomen not distended Percussion/Palpation: abdomen soft; abdomen nontender Neurologic: Alert awake and oriented x3. No focal sensory or no motor deficit appreciated Psychiatric: A+Ox3, euthymic affect Lymphatic: no cervical or axillary lymphadenopathy Results & Data Results & Data ([facility]) Vital Signs (Past 12 Hours) Vital Signs Temp Pulse Pulse Resp BP Pulse Ox Pulse Ox 05/24/22 15:10 81 05/24/22 15:08 36.8 C 73 18 123/75 95 05/24/22 13:37 71 05/24/22 11:00 36.4 C L 89 22 134/76 94 05/24/22 07:45 95 05/24/22 07:35 36.4 C L 69 24 136/88 95 Laboratory Results Short CBC 05/24/22 Range/Units 02:12 WBC 4.86 (4.8-10.8) K/ul Hgb 10.6 L (14.0-18.0) g/dl Hct 33.8 L (40.1-51.0) % Plt Count 212 (130-400) K/uL BMP 05/24/22 02:12 Sodium 138 Potassium 4.1 Chloride 107 Carbon Dioxide 27 BUN 17 Creatinine 1.18 Glucose 98 Calcium 7.9 L Medications Administered Current Inpatient Medications Acetaminophen (Acetaminophen 325 Mg Tab) 650 mg PO Q4H PRN PRN Reason: Pain or Fever Stop: 06/20/22 00:42 Amitriptyline HCl (Amitriptyline Hcl 50 Mg Tab) 50 mg PO [facility] Stop: 06/20/22 20:59 Last Admin: 05/23/22 20:13 Dose: 50 mg Documented by: Apixaban (Apixaban 2.5 Mg Tab) 2.5 mg PO BID [facility] Stop: 06/20/22 20:59 Last Admin: 05/24/22 09:24 Dose: 2.5 mg Documented by: Buspirone HCl (Buspirone 5 Mg Tab) 15 mg PO [facility] Stop: 06/20/22 00:42 Last Admin: 05/23/22 20:12 Dose: 15 mg Documented by: Buspirone HCl ([facility]one 5 Mg Tab) [facility] Stop: 06/20/22 08:59 Last Admin: 05/24/22 09:28 Dose: 7.5 mg Documented by: Diclofenac Sodium (Diclofenac Sod 1% Gel 100 Gm Tube) 4 gm EXT DAILY PRN; Protocol PRN Reason: Pain Stop: 06/20/22 00:42 Ezetimibe (Ezetimibe 10 Mg Tablet) 5 mg PO DAILY [facility] Stop: 06/20/22 08:59 Last Admin: 05/24/22 09:29 Dose: 5 mg Documented by: Fluvastatin Sodium (Fluvastatin Sodium 20 Mg Cap) 40 mg PO BID [facility] Stop: 06/20/22 20:59 Last Admin: 05/24/22 09:24 Dose: 40 mg Documented by: Gabapentin (Gabapentin 300 Mg Cap) 600 mg PO TID [facility] Stop: 06/20/22 08:59 Last Admin: 05/24/22 14:36 Dose: 600 mg Documented by: Promethazine HCl 12.5 mg/ (Sodium Chloride) 50.5 mls @ 202 mls/hr IV Q6H PRN PRN Reason: Nausea And Vomiting Stop: 06/20/22 00:42 Sodium Chloride (Nss 1000ml) 1,000 mls @ 80 mls/hr IV .[id number] [facility] Stop: 06/22/22 16:14 Last Admin: 05/24/22 05:46 Dose: 80 mls/hr Documented by: Lorazepam (Lorazepam 0.5 Mg Tab) 0.5 mg PO TID PRN PRN Reason: Anxiety Stop: 06/20/22 00:42 Last Admin: 05/23/22 20:10 Dose: 0.5 mg Documented by: Metoprolol Succinate (Metoprolol Succ 25mg Ext Rel Tab) 12.5 mg PO QAM [facility] Stop: 06/20/22 08:59 Last Admin: 05/24/22 09:30 Dose: 12.5 mg Documented by: Midodrine (Midodrine Hcl 2.5 Mg Tab) 2.5 mg PO TID@0800,1200,1700 [facility] Stop: 06/21/22 11:59 Last Admin: 05/24/22 13:05 Dose: 2.5 mg Documented by: Miscellaneous (Fluvastatin 80 Mg Tablet Extended Release 24 Hr - Order Awaiting Action) 1 ea N/A QS [facility] Stop: 06/20/22 07:59 Last Admin: 05/24/22 09:49 Dose: Not Given Documented by: Olanzapine (Olanzapine 10 Mg/2.1 Ml Sdv) 2.5 mg IM Q4H PRN PRN Reason: Anxiety/Agitation Stop: 06/23/22 01:43 Pantoprazole Sodium (Pantoprazole 40 Mg Tab) 40 mg PO DAILY [facility] Stop: 06/20/22 08:59 Last Admin: 05/24/22 09:30 Dose: 40 mg Documented by:
[2022-05-24] MEDS: AMITRIPTYLINE HCL 50 MG TAB PO SCH (20:19)
[2022-05-25] MEDS: SODIUM CHLORIDE 0.9% 1000ML 1,000 ML IV SCH (06:03)
[2022-05-25] MEDS: APIXABAN 2.5 MG TAB PO SCH (08:13)
[2022-05-25] MEDS: PANTOprazole 40 MG TAB PO SCH (08:13)
[2022-05-25] MEDS: EZETIMIBE 10 MG TABLET PO SCH (08:13)
[2022-05-25] MEDS: METOPROLOL SUCC 25MG EXT REL TAB PO SCH (08:14)
[2022-05-25] MEDS: MIDODRINE HCL 2.5 MG TAB PO SCH ×2 (08:14→12:25)
[2022-05-25] MEDS: busPIRone 5 MG TAB PO SCH (08:14)
[2022-05-25] MEDS: GABAPENTIN 300 MG CAP PO SCH ×2 (08:15→12:25)
[2022-05-25] MEDS: FLUVASTATIN SODIUM 20 MG CAP PO SCH (08:15)
--- NOTE | 2022-05-25 12:11 | Hospitalist Progress Note ---
Date of Service May 25, 2022 Assessment & Plan (1) Syncope: Plan: Likely secondary to orthostasis History of orthostatic hypotension as per records Patient possibly taking both propranolol and metoprolol cardiac medications as per account. (Possible functional disability) [place] dizzy during this episode but did not lose any consciousness Noted to have systolic blood pressure going down to 60s during physical therapy today Started with intravenous fluid and was advised to drink more fluid Appreciate cardiology input and recommendation Propanolol has been discontinued Will get orthostatic vitals every shift. 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 and diastolic dysfunction Noted to have significant drop in systolic blood pressure on standing without any symptoms Will be discharged home this afternoon Acute confusion Noted to be very confused yesterday 05/23/2022 and was not discharged Received a dose of Zyprexa last night due to anxiety and agitation Lorazepam is on hold He was drowsy this morning but in the afternoon much brighter and minimally confused Discussed with the family members and the patient He will be observed overnight and likely discharge tomorrow He may have baseline dementia Pleasantly confused likely secondary to dementia PAF on Eliquis, patient NSR Eliquis doses have been decreased to 2.5 mg twice daily Denies any chest pain and/or palpitation Heart rate remains elevated at 103 this afternoon Will increase metoprolol succinate to 25 mg every morning from 12.5 mg every morning hx esophageal carcinoma status post surgery Is not having any symptoms CRI, creatinine at baseline Chronic anemia, hemoglobin at baseline Past tobacco/alcohol abuse DVT prophylaxis. Eliquis Full code Patient family requesting updates from providers. Ms. Magaly Epps (), contact #[phone] Mr. Bueno Gregg (stepson), contact #[phone] Admission and Anticipated Discharge Date Admission Date: May 22, 2022 Subjective 05/21/2022 The patient was seen and examined in medical telemetry unit He was admitted with a spell which has been going on for a while and the patient is aware that this happens due to low blood pressure with ambulation and standing Noted to have significant orthostasis without any symptoms during physical therapy this morning He was a started with intravenous fluid He denies any other complaints 05/22/2022 The patient was seen and examined in medical telemetry unit His symptoms of dizziness have decreased Orthostatic vitals are improving too He was advised to drink more fluid 05/23/2022 The patient was seen and examined in medical telemetry unit He denies any more dizziness and/or presyncope Orthostasis has improved Has had PT evaluation and recommended home 05/24/2022 The patient was seen and examined in medical telemetry unit in presence of the family members He received a dose of Zyprexa last night but no Ativan He has been feeling much better this morning though was drowsy In the afternoon his condition improved a lot and shows minimal confusion We will observe him overnight and likely discharge tomorrow 05/25/2022 The patient was seen and examined in medical telemetry unit Denies any significant symptoms There are significant drop in systolic blood pressure on standing without any symptoms He was strongly advised to take precaution to avoid fall at home Review of Systems Review of Systems: All systems reviewed and are unremarkable except as noted below Physical Exam 2 Physical Exam: Lying in bed comfortably Constitutional: average body habitus; not ill appearing Eyes: PERRL, conjunctivae normal, anicteric sclerae ENMT: external ear and nose normal, oropharynx normal Neck: trachea midline, no thyromegaly Respiratory: no respiratory distress Auscultation: lungs clear to auscultation bilaterally Cardiovascular: Rate/Rhythm: regular rate and regular rhythm; not tachycardic Heart Sounds: normal S1 and normal S2; no murmur Extremities: no edema Gastrointestinal (Abdomen): Inspection/Auscultation: normal bowel sounds; abdomen not distended Percussion/Palpation: abdomen soft; abdomen nontender Musculoskeletal: No acute arthritis in any joint Neurologic: Alert and awake. Oriented in time person and place. Moving all limbs equally Psychiatric: A+Ox3, euthymic affect Lymphatic: no cervical or axillary lymphadenopathy Results & Data Results & Data ([facility]) Vital Signs (Past 12 Hours) Vital Signs Temp Pulse Pulse Resp BP Pulse Ox 05/25/22 11:30 36.4 C L 60 18 145/81 H 91 05/25/22 09:28 73 05/25/22 07:21 36.3 C L 70 18 159/85 H 94 05/25/22 03:12 36.6 C 75 18 143/77 H 94 Medications Administered Current Inpatient Medications Acetaminophen (Acetaminophen 325 Mg Tab) 650 mg PO Q4H PRN PRN Reason: Pain or Fever Stop: 06/20/22 00:42 Amitriptyline HCl (Amitriptyline Hcl 50 Mg Tab) 50 mg PO HS [facility] Stop: 06/20/22 20:59 Last Admin: 05/24/22 20:19 Dose: 50 mg Documented by: Apixaban (Apixaban 2.5 Mg Tab) 2.5 mg PO BID [facility] Stop: 06/20/22 20:59 Last Admin: 05/25/22 08:13 Dose: 2.5 mg Documented by: Buspirone HCl (Buspirone 5 Mg Tab) 15 mg PO HS [facility] Stop: 06/20/22 00:42 Last Admin: 05/24/22 20:19 Dose: 15 mg Documented by: Buspirone HCl (Buspirone 5 Mg Tab) 7.5 mg PO QAM [facility] Stop: 06/20/22 08:59 Last Admin: 05/25/22 08:14 Dose: 7.5 mg Documented by: Diclofenac Sodium (Diclofenac Sod 1% Gel 100 Gm Tube) 4 gm EXT DAILY PRN; Protocol PRN Reason: Pain Stop: 06/20/22 00:42 Ezetimibe (Ezetimibe 10 Mg Tablet) 5 mg PO DAILY [facility] Stop: 06/20/22 08:59 Last Admin: 05/25/22 08:13 Dose: 5 mg Documented by: Fluvastatin Sodium (Fluvastatin Sodium 20 Mg Cap) 40 mg PO BID [facility] Stop: 06/20/22 20:59 Last Admin: 05/25/22 08:15 Dose: 40 mg Documented by: Gabapentin (Gabapentin 300 Mg Cap) 600 mg PO TID [facility] Stop: 06/20/22 08:59 Last Admin: 05/25/22 08:15 Dose: 600 mg Documented by: Promethazine HCl 12.5 mg/ (Sodium Chloride) 50.5 mls @ 202 mls/hr IV Q6H PRN PRN Reason: Nausea And Vomiting Stop: 06/20/22 00:42 Sodium Chloride (Nss 1000ml) 1,000 mls @ 80 mls/hr IV .[id number] [facility] Stop: 06/22/22 16:14 Last Admin: 05/25/22 06:03 Dose: 80 mls/hr Documented by: Lorazepam (Lorazepam 0.5 Mg Tab) 0.5 mg PO TID PRN PRN Reason: Anxiety Stop: 06/20/22 00:42 Last Admin: 05/23/22 20:10 Dose: 0.5 mg Documented by: Metoprolol Succinate (Metoprolol Succ 25mg Ext Rel Tab) 12.5 mg PO QAM [facility] Stop: 06/20/22 08:59 Last Admin: 05/25/22 08:14 Dose: 12.5 mg Documented by: Midodrine (Midodrine Hcl 2.5 Mg Tab) 2.5 mg PO TID@0800,1200,1700 [facility] Stop: 06/21/22 11:59 Last Admin: 05/25/22 08:14 Dose: 2.5 mg Documented by: Miscellaneous (Fluvastatin 80 Mg Tablet Extended Release 24 Hr - Order Awaiting Action) 1 ea N/A QS [facility] Stop: 06/20/22 07:59 Last Admin: 05/25/22 08:11 Dose: Not Given Documented by: Olanzapine (Olanzapine 10 Mg/2.1 Ml Sdv) 2.5 mg IM Q4H PRN PRN Reason: Anxiety/Agitation Stop: 06/23/22 01:43 Pantoprazole Sodium (Pantoprazole 40 Mg Tab) 40 mg PO DAILY [facility] Stop: 06/20/22 08:59 Last Admin: 05/25/22 08:13 Dose: 40 mg Documented by:
--- NOTE | 2022-05-25 17:52 | Discharge Summary ---
Date of Service May 25, 2022 Admission HPI Per Admitting Provider History obtained from patient, family, and records. Medical history significant for PAF on Eliquis, esophageal carcinoma status post surgery, orthostatic hypotension as per records, CRI (baseline creatinine 1.5 ), chronic anemia (baseline hemoglobin of 12 ), past tobacco/alcohol abuse. 1 month history of dizziness described as lightheadedness noted on standing up. Almost daily symptoms as per family. Syncopal events as per family which patient not sure about. No witnessed seizures. No tongue biting or incontinence episodes. Patient denies headache, chest pain, shortness of breath. Metoprolol discontinued by [facility] polypharmacy consult on last visit August 2021. Patient thinks he is taking both propranolol and metoprolol medications at home. Head trauma following syncopal episode at home today leading to fall. Initial SBP 90s upon EMS arrival at home. Medical History as above Surgical History : Cystoscopy, right shoulder surgery, knee replacement, laminectomy, double hernia repair, vascular device placement, diagnostic laparoscopy, total esophagectomy, J-tube placement Family History : DM Personal/Social history : Past tobacco/alcohol abuse as per records, retired from construction work, lives with Admission Exam Per Admitting Provider Physical Exam: GENERAL: Comfortable, pleasant, slightly anxious, slightly hard of hearing, no respiratory distress SKIN: Normal color, warm HEENT: [place] palpebral conjunctivae, no ptosis, dry buccal mucosa NECK : Supple, no tenderness CHEST : CTA, no tenderness HEART : RRR, no obvious murmurs ABDOMEN: no distention, nontender EXTREMITIES : No LE swelling/tenderness, no other conspicuous deformities noted NEUROLOGIC : Coherent, no facial asymmetry, slightly hard of hearing, gait and stance not assessed Principal Diagnosis Near syncope likely secondary to postural hypotension, paroxysmal atrial fibrillation, history of esophageal carcinoma Discharge Exam Constitutional average body habitus; not ill appearing Eyes PERRL, conjunctivae normal, anicteric sclerae ENMT external ear and nose normal, oropharynx normal Neck trachea midline, no thyromegaly Respiratory no respiratory distress Auscultation: lungs clear to auscultation bilaterally Cardiovascular Rate/Rhythm: regular rate and regular rhythm; not tachycardic Heart Sounds: normal S1 and normal S2; no murmur Extremities: no edema Gastrointestinal (Abdomen) Inspection/Auscultation: normal bowel sounds; abdomen not distended Percussion/Palpation: abdomen soft; abdomen nontender Psychiatric A+Ox3, euthymic affect Lymphatic no cervical or axillary lymphadenopathy Discharge Data Allergies Allergy/AdvReac Type Severity Reaction Status Date / Time dextrose Allergy Intermediate Rash Verified 05/20/22 19:42 ibuprofen Allergy Intermediate Rash Verified 05/20/22 19:42 levofloxacin Allergy Intermediate Rash Verified 05/20/22 19:42 prednisone Allergy Intermediate Rash Verified 05/20/22 19:42 rofecoxib Allergy Intermediate Rash Verified 05/20/22 19:42 Consultations 05/20/22 22:15 ED Decision to Admit Stat 05/21/22 00:43 Consult Cardiology Routine Ordered Studies 05/20/22 18:48 CT cervical spine wo con Stat CT head/brain wo con Stat Hospital Course (1) Syncope: Likely secondary to orthostasis History of orthostatic hypotension as per records Patient possibly taking both propranolol and metoprolol cardiac medications as per account. (Possible functional disability) [place] dizzy during this episode but did not lose any consciousness Noted to have systolic blood pressure going down to 60s during physical therapy today Started with intravenous fluid and was advised to drink more fluid Appreciate cardiology input and recommendation Propanolol has been discontinued Will get orthostatic vitals every shift. Awaiting echo report May need midodrine if with persistent hypotension PT OT eval Orthostatic vitals are improving with intravenous fluid and the kidney function is improved to Midodrine was added by the manager managing Echo showed mild concentric LVH with EF 60 to 65%, aortic valve sclerosis without significant stenosis, moderate dilatation of the aortic root at 4.5 cm and diastolic dysfunction Noted to have significant drop in systolic blood pressure on standing without any symptoms Will be discharged home this afternoon Acute confusion Noted to be very confused yesterday 05/23/2022 and was not discharged Received a dose of Zyprexa last night due to anxiety and agitation Lorazepam is on hold He was drowsy this morning but in the afternoon much brighter and minimally confused Discussed with the family members and the patient He will be observed overnight and likely discharge tomorrow He may have baseline dementia Pleasantly confused likely secondary to dementia PAF on Eliquis, patient NSR Eliquis doses have been decreased to 2.5 mg twice daily Denies any chest pain and/or palpitation Heart rate remains elevated at 103 this afternoon Will increase metoprolol succinate to 25 mg every morning from 12.5 mg every morning hx esophageal carcinoma status post surgery Is not having any symptoms CRI, creatinine at baseline Chronic anemia, hemoglobin at baseline Past tobacco/alcohol abuse DVT prophylaxis. Eliquis Full code Patient family requesting updates from providers. Ms. Magaly Epps (), contact #[phone] Mr. Myles Escobedo ([email or web address]), contact #[phone] Total Time Total Time Spent Total Time Spent (In Minutes): 35 minutes Discharge Plan Discharge Items Patient Disposition: Home - Home Health Services Reason For Visit: SYNCOPE Discharge Diagnosis: Near syncope likely secondary to postural hypotension, paroxysmal atrial fibrillation, history of esophageal carcinoma Condition on Discharge: Fair Activity: Resume your previous activity Non-emergency contact: Primary Care Provider Call non-emergency contact if: you have any medication questions and your symptoms worsen Follow-up/Referrals: Josh Hamlin DO [Physician] - (Date & Time 06/20/2022 9:30 AM Provider Josh Hamlin Jr., DO Department Cardiology, [facility] ) Dianna Maria DO [Primary Care Provider] - (Date & Time 05/28/2022 3:00 PM Provider Dianna Maria DO Department Family Practice [facility] ) Diet: Heart Healthy Addtl Attending Provider Instructions: Please take precautions to avoid falls Please take the medications as advised Doses of your Eliquis have been decreased to 2.5 mg twice daily Your propranolol has been discontinued Midodrine has been added Try to take more fluids to avoid dehydration Please keep appointments with your healthcare providers Pending Studies at Discharge: No Stand-Alone Forms: My [facility], Smoking Cessation Medications and DC Order Prescriptions: New midodrine 2.5 mg Tablet 2.5 mg PO TID@0800,1200,1700 30 Days Qty: 90 RF: 0 metoprolol succinate 25 mg Tablet Extended Release 24 Hr 12.5 mg PO QAM 30 Days Qty: 15 RF: 0 Eliquis 2.5 mg Tablet 2.5 mg PO BID 30 Days Qty: 60 RF: 0 Continued buspirone 5 mg tablet See Rx Instructions .ROUTE .COMPLEX RF: 0 amitriptyline 50 mg tablet 50 mg PO HS RF: 0 lorazepam 0.5 mg tablet 0.5 mg PO TID PRN (Reason: Anxiety) RF: 0 pantoprazole 40 mg tablet,delayed release (DR/EC) 40 mg PO DAILY RF: 0 fluvastatin 80 mg tablet extended release 24 hr 80 mg PO DAILY RF: 0 ezetimibe 10 mg tablet 5 mg PO DAILY RF: 0 gabapentin 300 mg capsule 600 mg PO TID RF: 0 diclofenac sodium 1 % Gel 4 g TOPICAL DAILY PRN (Reason: Pain) RF: 0 Discontinued propranolol 20 mg tablet 20 mg PO BID RF: 0 Eliquis 5 mg tablet 5 mg PO BID RF: 0 Discharge Orders: Discharge Order (Routine); Ordered 05/25/22 Ordered By: Chel Geronimo Admission Data Admit Date/Time: 05/22/22 15:58 Attending Provider: Chel Geronimo Admit Provider: Mason Agosto Primary Care Provider: Dianna Maria Other Providers: Mason Agosto ; Josh Hamlin ; Raj Zavala ; Marcos Winchester ; Jh Zelaya ; Michael Altamirano ; Arcenio Delgado ; Christina Donato ; Jaquelin Hoffman ; Gracie Trujillo ; Billy Mg Other Interventions: Discharge Summary Assessment (RN) Last Done: 05/25/22 13:44
== END 2022-05-25 15:39 | disposition home health service (06) | DRG 312 ==
LOC: 2W 18:28 → ED 18:28 → SUATTDRO 23:18 → 2W 23:53